=== PATIENT | male | born 1950 | race Caucasian/White ===

== ENCOUNTER 2024-03-21 18:12 | Inpatient (IN) | payer MEDICARE ==
[~2024-03-21] VITALS: Ht 180.3 cm; Wt 116.8 kg
--- NOTE | 2024-03-21 18:23 | NUR ---
PT JUST NOW PLACED IN MY ED BED 9 BY [facility]. SEPSIS ALERT
[2024-03-21] MEDS: acetaMINOPHEN 1,000 MG/100 ML VIAL IVPB SCH (18:49)
[2024-03-21 18:50] LABS: BASOPHILS # (AUTO) 0.02 K/uL (0.00-0.20); BASOPHILS % (AUTO) 0.2 % (0.0-5.0); EOSINOPHILS # (AUTO) 0.14 K/uL (0.00-0.70); EOSINOPHILS % (AUTO) 1.4 % (0.0-8.0); HEMATOCRIT 38.3 % (42-54); IMMATURE GRANULOCYTE ABSOLUTE 0.05 K/uL (0-1); LYMPHOCYTES # (AUTO) 0.6 K/uL (1.0-4.8); LYMPHOCYTES % (AUTO) 5.9 % (21.0-51.0); MEAN CORPUSCULAR HEMOGLOBIN 29.9 pg (27.0-33.0); MEAN CORPUSCULAR HGB CONC 32.9 g/dL (32.0-36.0); MEAN CORPUSCULAR VOLUME 90.8 fL (79-99); MONOCYTES # (AUTO) 0.5 K/uL (0.1-1.0); MONOCYTES % (AUTO) 5.5 % (3.0-13.0); NEUTROPHILS # (AUTO) 8.4 K/uL (1.8-7.7); NEUTROPHILS % (AUTO) 86.5 % (40.0-77.0); PLATELET COUNT (AUTO) 210 K/uL (130-400); RED BLOOD CELL COUNT(AUTO) 4.22 MIL/uL (4.50-6.20); WHITE BLOOD COUNT (AUTO) 9.7 K/uL (4.8-10.8)
[2024-03-21] MEDS: 0.9%NACL 1000ML 1,000 ML IV ONE (18:50)
--- NOTE | 2024-03-21 18:50 | NUR ---
PT JUST RETURNED FROM CT SCAN
--- NOTE | 2024-03-21 18:55 | ERN ---
General Chief Complaint: Altered Mental Status Stated Complaint: AMS Time Seen by MD: 18:16 History of Present Illness Initial Comments 73-year-old male brought in by EMS for weakness, and high fever. According to the patient, [place] and he arrived earlier today. The friends that he met thought that he may have been acting abnormal, they found him down in the high fever. The patient has a GCS of 15 but is slow to respond and forgetful. He denies any complaints at this time. Denies any sore throat cough congestion vomiting diarrhea dysuria. He reports he has been in his normal state of health. He reports he was medical conditions including hypertension, but he can not recall his other medical conditions or medications. Allergies: Coded Allergies: Penicillins (Unverified Allergy, Intermediate, 03/22/24) 30 yrs ago aspirin (Unverified Allergy, Unknown, 03/21/24) Home Meds Reported Medications Magnesium Oxide (Magnesium) 500 Mg Capsule, 500 MG PO HS, CAP 03/22/24 Vitamin E Mixed (Vitamin E) 1,000 Unit Capsule, 1 CAP PO DAILY for 30 Days, #30 CAP 0 Refills 03/22/24 Glucosa Mcbride 2Kcl/Chondroitin Mcbride (Glucosamine & Chondroitin Cap) 500 Mg-400 Mg Capsule, 1 EACH PO DAILY, CAP 03/22/24 Multivits-Min/FA/Lycopene/Lut (Centrum Silver Tablet) 0.4 Mg-300 Mcg-250 Mcg Ta blet, 1 TAB PO DAILY for 30 Days, #30 TAB 0 Refills 03/22/24 Acetaminophen (Tylenol) 325 Mg Tablet, 1-2 TAB PO DAILY PRN for pain or fever for 7 Days, #60 TAB 0 Refills 03/22/24 Laurel-3/Dha/Epa/Fish Oil (Fish Oil 1,200 mg Softgel) 1,200 Mg (144 Mg-216 Mg) Capsule, 1200 MG PO DAILY, CAP 03/22/24 Hydrochlorothiazide (Hydrochlorothiazide) 25 Mg Tablet, 1 TAB PO DAILY for 30 Days, #30 TAB 0 Refills 03/22/24 Valsartan (Valsartan) 160 Mg Tablet, 1 TAB PO DAILY for 30 Days, #30 TAB 0 Refills 03/22/24 Atorvastatin Calcium (LIPITOR) 40 Mg Tablet, 1 TAB PO DAILY for 30 Days, #30 TAB 0 Refills 03/22/24 Fluoxetine HCl (Fluoxetine HCl) 20 Mg Tablet, 1 TAB PO DAILY for 30 Days, #30 TAB 0 Refills 03/22/24 Clopidogrel Bisulfate (Clopidogrel) 75 Mg Tablet, 1 TAB PO HS for 30 Days, #30 TAB 0 Refills 03/22/24 Hydroxyzine HCl (Hydroxyzine HCl) 25 Mg Tablet, 1 TAB PO HS for anxiety for 30 Days, #60 TAB 0 Refills 03/22/24 Gabapentin (Gabapentin) 100 Mg Capsule, 1 CAP PO HS for 30 Days, #90 CAP 0 Refills 03/22/24 Pantoprazole Sodium (Pantoprazole Sodium) 40 Mg Tablet.dr, 1 TAB PO HS for 30 Days, #30 TAB 0 Refills 03/22/24 Metformin HCl (Metformin HCl ER) 500 Mg Tab.er.24h, 1 TAB PO BID for 30 Days, #60 TAB 0 Refills 03/22/24 Discontinued Reported Medications Donepezil HCl (Donepezil HCl) 5 Mg Tab.rapdis, 5 MG PO HS, TAB 03/22/24 Past Medical History Past Medical History: CVA, Hypertension Past Surgical History: None ROS Dictation CONSTITUTIONAL: Fever HEAD/FACE: No signs of trauma. EENT: No eye pain, no blurred vision, no tearing, no double vision, no ear pain, no ear discharge, no nose pain, no nasal congestion, no throat pain, no throat swelling, no mouth pain. RESPIRATORY: No cough, no orthopnea, no SOB, no stridor, no wheezing. CARDIOVASCULAR: No chest pain, no edema, no palpitations, no syncope. GASTROINTESTINAL/ABDOMINAL: No abdominal pain, no constipation, no diarrhea, no nausea, no vomiting. GENITOURINARY: No abnormal discharge, no dysuria, no frequent urination, no hematuria. No complaints of pain in the genitals. MUSCULOSKELETAL: No back pain, no gout, no joint pain, no joint swelling, no muscle pain, no muscle stiffness, no neck pain. INTEGUMENTARY: No change in color, no change in hair/nails, no dryness, no lesion, no lumps, no rash. NEUROLOGICAL/PSYCH: No anxiety, not depressed, no emotional problem, no headache, no numbness, no pre-existing deficit, no history of seizures, no tremors, no weakness. HEMATOLOGIC/LYMPHATIC: Not anemic, no history of blood clots, no apparent bleeding, no bruising, glands not swollen. All Systems Negative, Except as Noted. Physical Exam Physical Exam Dictation VITAL SIGNS: Reviewed. GENERAL APPEARANCE: Alert, oriented x3, no acute distress, obese. HEAD AND FACE: Non-traumatic. EYES: PERRL, pink conjunctivas, eyelid no trauma, anterior chamber clear. EARS: Pinnas intact and no signs of trauma or erythema. Ear canals clear and no discharge. TMs no erythema. NOSE: No discharge, no bleeding. OROPHARYNX: Mouth normal, teeth no caries, tongue pink. Pharynx clear, no erythema. Tonsils no exudates, no abscesses noted. Mucous membrane moist. NECK: Supple, non-tender, no thyromegaly, no masses, no JVD, no bruits. BREAST: Deferred. CHEST: No tenderness, no crepitus, no paradoxical movement, no retractions. LUNGS: Clear, well-ventilated, symmetric, no rales, no wheezing, no rhonchi, no stridor, good breath sounds bilaterally. HEART: Regular rate, regular rhythm, no murmur, no gallops. VASCULAR: No peripheral edema. ABDOMEN: Soft, positive bowel sounds, nondistended, no guarding, nontender, no rebound, no masses no hepatomegaly, no splenomegaly, no Dumont's sign, no hernias. RECTAL: Deferred. GENITAL: Deferred. NEUROLOGICAL: Normal speech, gross motor function intact, gross sensory function intact. MUSCULOSKELETAL: Neck nontender, full range of motion, back nontender, full range of motion. EXTREMITIES: Nontender, full range of motion. SKIN: Color pink, dry, no turgor, no rash, no lacerations, no abrasions, no contusions. LYMPHATICS: Deferred. Results Laboratory and Microbiology Lab and Micro Result Laboratory Tests Test 03/21/24 18:30 03/21/24 18:50 03/21/24 19:13 White Blood Count 9.7 K/uL (4.8-10.8) Red Blood Count 4.22 MIL/uL (4.50-6.20) L Hemoglobin 12.6 g/dL (14.0-18.0) L Hematocrit 38.3 % (42-54) L Mean Corpuscular Volume 90.8 fL (79-99) Mean Corpuscular Hemoglobin 29.9 pg (27.0-33.0) Mean Corpuscular Hemoglobin Concent 32.9 g/dL (32.0-36.0) Red Cell Distribution Width 13.0 % (11.0-15.5) Platelet Count 210 K/uL (130-400) Mean Platelet Volume 8.5 fL (7.5-10.5) Immature Granulocyte % (Auto) 0.5 % (0-1) Neutrophils (%) (Auto) 86.5 % (40.0-77.0) H Lymphocytes (%) (Auto) 5.9 % (21.0-51.0) L Monocytes (%) (Auto) 5.5 % (3.0-13.0) Eosinophils (%) (Auto) 1.4 % (0.0-8.0) Basophils (%) (Auto) 0.2 % (0.0-5.0) Neutrophils # (Auto) 8.4 K/uL (1.8-7.7) H Lymphocytes # (Auto) 0.6 K/uL (1.0-4.8) L Monocytes # (Auto) 0.5 K/uL (0.1-1.0) Eosinophils # (Auto) 0.14 K/uL (0.00-0.70) Basophils # (Auto) 0.02 K/uL (0.00-0.20) Absolute Immature Granulocyte (auto 0.05 K/uL (0-1) Nucleated Red Blood Cells 0.0 % (0.0-0.19) White Cell Morphology Comment See comments Urine Color YELLOW (YELLOW) Urine Appearance CLEAR (CLEAR) Urine pH 6.5 (5.0-8.0) Urine Specific [place] 1.016 (1.001-1.031) Urine Protein NEGATIVE mg/dL (NEGATIVE) Urine Glucose (UA) NEGATIVE mg/dL (NEGATIVE) Urine Ketones NEGATIVE mg/dL (NEGATIVE) Urine Occult Blood NEGATIVE (NEGATIVE) Urine Nitrate NEGATIVE (NEGATIVE) Urine Bilirubin NEGATIVE mg/dL (NEGATIVE) Urine Urobilinogen 0.2 mg/dL (0.2-1.0) Urine Leukocyte Esterase NEGATIVE [place]/uL Sodium Level 143 mmol/L (136-145) Potassium Level 3.1 mmol/L (3.5-5.1) L Chloride Level 102 mmol/L (101-111) Carbon Dioxide Level 32 mmol/L (21-32) Blood Urea Nitrogen 17 mg/dL (7-18) Creatinine 1.1 mg/dL (0.5-1.3) Glomerular Filtration Rate Calc 71 mL/min (>90) Random Glucose 113 mg/dL (70-105) H Lactic Acid Level 3.2 mmol/L (0.8-2.5) H Total Calcium 8.8 mg/dL (8.5-10.1) Total Bilirubin 0.9 mg/dL (0.2-1.0) Direct Bilirubin 0.2 mg/dL (0.0-0.3) Aspartate Amino Transf (AST/SGOT) 42 U/L (10-37) H Alanine Aminotransferase (ALT/SGPT) 66 U/L (12-78) Alkaline Phosphatase 71 U/L (50-136) Total Creatine Kinase 203 U/L (21-232) Troponin I High Sensitivity 10 ng/L (4-75) Total Protein 7.6 g/dL (6.0-8.3) Albumin 3.4 g/dL (3.5-5.0) L Procalcitonin 0.27 ng/mL (0.05-0.5) Influenza Type A Antigen Negative For Type A Influenza Type B Antigen Negative For Type B SARS-CoV-2 Antigen (Rapid) PRESUMPTIVE NEGATIVE Group A Streptococcus Rapid negative (NEGATIVE) Labs Reviewed?: Yes EKG/XRAY/US/CT/MRI EKG Comment 03/21/2024 time 8:23 p.m. Ventricular rate 90 Sinus rhythm [place] [address] wave elevation or depression X-RAY Comment [address] [address] IMAGING REPORT Signed PATIENT: NEHEMIAH STOUT MR#: [id number] : 1950 SEX: M AGE: 73 LOCATION: [facility] ORDER 29 STATUS: REG ER REPORT#: [id number] SERVICE 26 REASON: cough ORDERING PHYSICIAN: WENDY DAVIDSON DO PROCEDURE: CXR1VW - CHEST 1VW CHEST 1VW REASON: cough COMPARISON: None. FINDINGS: Single view of the chest was obtained. Lungs are clear. There is mild cardiomegaly. There is no pulmonary vascular congestion. Mediastinum and bony thorax appear unremarkable. IMPRESSION: 1. Mild cardiomegaly. 2. No acute finding. DICTATED BY: MAUREEN CABRALES MD DATE: 03/21/241941 ELECTRONICALLY SIGNED BY: MAUREEN CABRALES MD DATE: 03/21/241946 CT Scan Comment [place] [id number] [place] [address] IMAGING REPORT Signed PATIENT: NEHEMIAH STOUT MR#: [id number] : 1950 SEX: M AGE: 73 LOCATION: [facility] ORDER 30 STATUS: [facility] ER REPORT#: [id number] SERVICE 29 REASON: altered ORDERING PHYSICIAN: WENDY DAVIDSON DO PROCEDURE: HEAD WO - CT HEAD/BRAIN W/O CONTRAST Exam: NONCONTRAST CT BRAIN REASON: altered . COMPARISON: None. TECHNIQUE: Images are obtained from vertex to the skull base. The exam was performed without IV contrast. FINDINGS: There is a CSF collection in the posterior inferior right hemisacrum consistent with an arachnoid cyst. Encephalomalacia could result in this appearance as well. There is no mass effect. There is no midline shift. There is otherwise normal appearing brain parenchyma. There are no focal mass lesions. There is is no evidence of intracranial hemorrhage or acute stroke. Ventricles and sulci appear normal. Posterior fossa and brainstem structures are unremarkable. Paranasal sinuses and remaining extracranial soft tissues appear normal as well. IMPRESSION: 1. No acute finding 2. Encephalomalacia versus arachnoid cyst in the right hemicerebellum. CT was performed with one or more following dose reduction techniques: automated exposure control, adjustment of the mA and kv according to patient's size, or use of a iterative reconstruction technique. DICTATED BY: MAUREEN CABRALES MD DATE: 03/21/241848 ELECTRONICALLY SIGNED BY: MAUREEN CABRALES MD DATE: 03/21/241852 [facility] MDM: Differential diagnosis: Respiratory distress, seizures, fever, Rationale: Tests considered and ordered secondary to shared decision making include: labs, ECG and radiology Previous outside records reviewed: Old ER visits. Risk of complication and/or morbidity or mortality of patient management: None Medications-Per medication reconciliation Need for hospitalization: Patient does meet criteria for hospitalization. Need for emergency major/minor surgery: No There are no social concerns with this patient. Prescription drug management Prescriptions will include symptomatic care Patient's prior external medical records from other ER visits were reviewed by me as indicated. Prior testing and results from previous visits were reviewed. Prior tests were taken into account with medical decision making and resource utilization, independent historian/historians were used to obtain complete medical history. I independently interpreted the test that were performed, results were reviewed by me and considered findings on radiology if ordered. Medical management and examination interpretation discussions were had by me with other qualified healthcare professionals as indicated for the patient's care. Patient will be admitted under the care of hospitalist group for ongoing management.. The patient meets criteria for sepsis. He received IV fluids and IV antibiotics. On sepsis focused re-evaluation after the fluids antibiotics the patient has a improved vital signs and stable perfusion. ED Course Orders Procedure Category Date Status Time Cbc With Differential LAB 03/21/24 Complete 18:26 Blood Cult TESS 03/21/24 In Process 18:26 Urinalysis Profile LAB 03/21/24 Complete 18:26 Culture Urine ETSS 03/21/24 In Process 18:26 Creatine Kinase, Total LAB 03/21/24 Complete 18:26 Troponin I High LAB 03/21/24 Complete Sensitivity 18:26 Lactic Acid LAB 03/21/24 Complete 18:26 Basic Metabolic Panel LAB 03/21/24 Complete 18:26 Chest 1vw RAD 03/21/24 Resulted 18:27 Covid19 (Sars Antigen LAB 03/21/24 Complete Rapid) 18:27 Influenza Type A & B, LAB 03/21/24 Complete Rapid 18:27 Hepatic Function Panel LAB 03/21/24 Complete 18:27 0.9%Nacl 1000ml (Ns PHA 03/21/24 Complete 1000ml) 18:30 Ct Head/Brain W/O CT 03/21/24 Resulted Contrast 18:30 Acetaminophen PHA 03/21/24 Complete (Acetaminophen) 18:30 Rapid (Group A Strep) LAB 03/21/24 Complete 19:09 Febrile Agglutinins LAB 03/21/24 In Process Panel 19:09 Ipratropium/Albuterol PHA 03/21/24 Complete Neb (Duoneb) 20:00 Methylprednisolone PHA 03/21/24 Complete Succ 125mg (Solu-Medr 20:00 12 Lead Ekg Tracing- EKG 03/21/24 Resulted Technical 20:10 Current Medications Medications (Trade) Dose Ordered Sig/Kim Route PRN Reason Start Time Stop Time Status Last Admin Dose Admin Acetaminophen (acetaMINOPHEN) 1,000 mg ONCE IVPB 03/21/24 18:30 03/22/24 13:18 DC 03/21/24 18:49 Albuterol (DUOneb) 2 udvial ONCE ONCE IH 03/21/24 20:00 03/21/24 20:01 DC 03/21/24 20:59 Methylprednisolone Sodium Succinate (Solu-medROL 125MG) 125 mg ONCE ONCE IVP 03/21/24 20:00 03/21/24 20:01 DC 03/21/24 20:07 Sodium Chloride 1,000 ml @ 0 mls/hr ONCE ONCE IV 03/21/24 18:30 03/21/24 18:31 DC 03/21/24 18:50 Vital Signs Date Time Temp Pulse Resp B/P (MAP) Pulse Ox O2 Delivery O2 Flow Rate FiO2 03/21/24 19:39 90 18 122/78 95 Nasal Cannula* 2 28 03/21/24 19:21 100.9 95 18 140/78 95 Nasal Cannula* 2 28 03/21/24 18:21 103.1 109 25 138/69 96 Nasal Cannula* 4 36 03/21/24 18:21 103.1 109 25 138/69 96 4.0 DX & DISP Disposition: Inpatient Decision to Admit Time: 20:09 Departure Impression: Primary Impression: Respiratory distress Additional Impressions: Syncope, Sepsis Critical Time: 30 minutes (Critical Care Procedure NoteAuthorized and Performed by: meTotal critical care time: Approximately 36 minutesDue to a high probability of clinically significant, life threatening deterioration, the patient required my highest level of preparedness to intervene emergently and I personally spent this critical care time directly and personally managing the patient. This critical care time included obtaining a history; examining the patient; pulse oximetry; ordering and review of studies; arranging urgent treatment with development of a management plan; evaluation of patient's response to treatment; frequent reassessment; and, discussions with other providers.This critical care time was performed to assess and manage the high probability of imminent, life-threatening deterioration that could result in multi-organ failure. It was exclusive of separately billable procedures and treating other patients and teaching time.Please see MDM section and the rest of the note for further information on patient assessment and treatment.) Condition: Stable WENDY DAVIDSON DO Mar 21, 2024 18:55 KJ TITUS MD Mar 21, 2024 20:10
[2024-03-21 19:00] LABS: APPEARANCE,URINE CLEAR (CLEAR); BILIRUBIN,URINE NEGATIVE (NEGATIVE); COLOR,URINE YELLOW (YELLOW); GLUCOSE, URINE (UA) NEGATIVE (NEGATIVE); KETONES,URINE NEGATIVE (NEGATIVE); LEUKOCYTE ESTERASE ,URINE NEGATIVE Leu/uL (NEGATIVE); NITRATE,URINE NEGATIVE (NEGATIVE); OCCULT BLOOD,URINE NEGATIVE (NEGATIVE); PH,URINE 6.5 (5.0-8.0); PROTEIN,URINE NEGATIVE (NEGATIVE); UROBILINOGEN,URINE 0.2 mg/dL (0.2-1.0)
[2024-03-21 19:11] LABS: COVID19 (SARS ANTIGEN RAPID) PRESUMPTIVE NEGATIVE (NEGATIVE)
--- NOTE | 2024-03-21 19:14 | NUR ---
REPORT ENDORSED TO JASMIN EDEN
[2024-03-21 19:15] LABS: ADD UA MICROSCOPIC NO
[2024-03-21 19:17] LABS: CREATININE 1.1 mg/dL (0.5-1.3); POTASSIUM 3.1 mmol/L (3.5-5.1)
[2024-03-21 19:18] LABS: ALBUMIN 3.4 g/dL (3.5-5.0); BILIRUBIN,DIRECT 0.2 mg/dL (0.0-0.3); BILIRUBIN,TOTAL 0.9 mg/dL (0.2-1.0); TOTAL PROTEIN, SERUM 7.6 g/dL (6.0-8.3)
[2024-03-21 19:25] LABS: INFLUENZA TYPE A Negative For Type A (NEGATIVE); INFLUENZA TYPE B Negative For Type B (NEGATIVE)
--- NOTE | 2024-03-21 19:47 | HMCIMG ---
CHEST 1VW REASON: cough COMPARISON: None. FINDINGS: Single view of the chest was obtained. Lungs are clear. There is mild cardiomegaly. There is no pulmonary vascular congestion. Mediastinum and bony thorax appear unremarkable. IMPRESSION: 1. Mild cardiomegaly. 2. No acute finding.
[2024-03-21] MEDS: Solu-medROL 125MG VIAL IVP ONE (20:07)
--- NOTE | 2024-03-21 20:47 | HP ---
History of Present Illness Reason for Visit: [facility] History of Present Illness Mr. Dwyer is a 73-year-old male that was seen and examined today on 03/21/2024. Patient is a good historian and personal health. Patient states he came to the emergency department with a chief complaint of altered mental status. Onset was today at 4:00 p.m.. Location is to head. Duration is on and off. Character is described as" like I am out of it. " there was no alleviating factors. Symptoms are aggravated with the driving straight from [place] to the [facility] yesterday. Patient denies any associated shortness of breath or chest pain. Today in the emergency department potassium 3.1, patient arrived with a temperature of 103.1, heart rate 109, respirations 25, lactic acid 3.2 meeting clinical sepsis criteria. Urinalysis was unremarkable. Flu is negative. Strep screen is negative. COVID screen is negative. Emergency room physician recommended patient be admitted with a diagnosis of sepsis. Past Medical History ADDITIONAL PAST MEDICAL HISTORY: [JOSE, hypertension, CVA with residual left- sided weakness and numbness] SOCIAL HISTORY: [Negative for smoking. Patient drinks alcohol once a week usually a rum and Coke. Patient denies drug use.] SURGICAL HISTORY: [Left knee surgery, right shoulder surgery] Review of Systems General: Fever; No Chills, No Night Sweats, No Fatigue; Malaise; No Appetite, No Other HEENT: No Head Aches, No Visual Changes, No Eye Pain, No Ear Pain, No Dysphasia, No Sinus Congestion, No Post Nasal Drip, No Sore Throat, No Other Pulmonary: No Dyspnea, No Cough, No Pleuritic Chest Pain, No Other Cardiovascular: No: Chest Pain, Palpitations, Orthopnea, Paroxysmal Noc. Dyspnea, Edema, Lt Headedness, Other Gastrointestinal: No: Nausea, Vomiting, Abdominal Pain, Diarrhea, Constipation, Melena, Hematochezia, Other Genitourinary: No Dysuria, No Frequency, No Incontinence, No Hematuria, No Retention, No Other Musculoskeletal: No: other, neck pain, shoulder pain, arm pain, back pain, hand pain, leg pain, foot pain Skin: No Urticaria, No Rash, No Other Neurological: Weakness; No: Numbness, Incoordination, Change in speech, Confusion, Seizures, Other Allergies: Coded Allergies: aspirin (Unverified Allergy, Unknown, 03/21/24) Exam Vital Signs Vital Signs Date Time Temp Pulse Resp B/P (MAP) Pulse Ox O2 Delivery O2 Flow Rate FiO2 03/21/24 19:39 90 18 122/78 95 Nasal Cannula* 2 28 03/21/24 19:21 100.9 General Appearance: Alert, Oriented X3, Cooperative, mild distress HEENT: Atraumatic, EOMI Respiratory: Clear to auscultation, Normal air movement, NL respiratory effort Cardiovascular: Regular rate, Regular rhythm, Normal S1, Normal S2 Abdominal: Normal bowel sounds, No tenderness Extremities: No edema Skin: No significant lesion Neuro: Normal speech, Strength at 5/5 X4 ext, Sensation intact, Cranial nerves 3-12 NL Psych/Mental Status: Mental status NL, Mood NL, Thoughts/Content NL Assessment/Plan ASSESSMENT: [ Sepsis, POA Hypokalemia, POA Hyperlactatemia, POA JOSE Hypertension History of CVA with left-sided weakness] PLAN: [ Admit patient to medical floor as inpatient status. Place patient on telemetry monitoring. Fluid resuscitation with lactated Ringer's 30 mL/kg. Empiric antibiotic therapy with Zosyn. Check procalcitonin, follow up with the results Check blood culture, follow up with the results. Repeat lactic acid in a.m. Replace potassium per hospital protocol CPAP per home settings Consider resuming home medications once they are reconciled For now, Hydralazine 10 mg IV every 4 hours for systolic blood pressure greater than 160 mmHg DuoNebs every 6 hours Pulmicort twice daily GI prophylaxis, famotidine 20 mg by mouth once daily. DVT prophylaxis, Lovenox 40 mg subcutaneously once daily. ADVANCED CARE PLANNING 1. Which of the following were discussed? Hospice Care - Yes Therapeutic options - Yes Advance Directives - Yes- patient states that he does not have any advance directives in place at this time, however his Katie Dwyer can make decisions for him if he becomes unable. Other discussions - patient wishes to remain a full code at this time 2. Discussed with who? Patient 3. Voluntary nature of this service was explained to the patient? Yes 4. Amount of time spent - _ 16 minutes 5. Reviewed by Physician? (if this service was performed by NPP) Yes This document was generated in part using voice recognition software, occasional wrong word or sound alike substitutions may have occurred due to the inherent limitations of voice recognition software. Read the chart carefully and recognize using context, where the substitutions have occurred. Although every effort was made to edit the content, junior account manager and typing errors may occur ATTESTATION BY PHYSICIAN I have seen and examined the patient. I reviewed the documentation, medical decision making, and treatment plan as noted by the mid-level provider above. I agree with the findings and plan of care. VAIBHAV [facility] Mar 21, 2024 20:47
[2024-03-21 20:59] VITALS: PULSE 86; RESP 20
[2024-03-21] MEDS: IpraTROPium/alBUTERol SULFATE 3 ML SOLUTION IH ONE (20:59)
[2024-03-21] MEDS ORDERED: ondanSETRON 4MG INJ IV PRN (21:00)
[2024-03-21] MEDS ORDERED: PoTASSium chl 10% ELIXIR 20MEQ 20 MEQ/15 ML UDCUP PO PRN (21:00)
[2024-03-21] MEDS ORDERED: PoTASSium chloRIDE 20MEQ/100ML 100 ML IV PRN (21:00)
[2024-03-21] MEDS ORDERED: morPHINE 2 MG SYG IVP PRN (21:00)
--- NOTE | 2024-03-21 21:04 | EKG ---
[facility] Test Date: 2024-03-21 Test Time: 20:23:29 Pat Name: STEPH STOUT Department: [facility] Room: 411 Gender: M [employer] Writer: [id number] : 1950 Requested By: KJ TITUS Order Number: [id number] Reading MD: Doron Diamond Measurements Intervals [place] Rate: 90 P: 45 [place]: 220 QRS: -9 QRSD: 80 T: 19 QT: 370 QTc: 453 Interpretive Statements Sinus rhythm Prolonged [place] interval No previous ECG available for comparison Electronically Signed On 03-22-2024 12:17:54 [employer] RECEPTION[employer] by Doron Diamond Please click the below link to view image of tracing.
--- NOTE | 2024-03-21 22:22 | NUR ---
VAIBHAV JIM AT BEDSIDE.
[2024-03-21] MEDS: ZOSYN 3.375GM +NS 50ML IV SCH (22:29)
[2024-03-21] MEDS: LACTATED RINGERS IV ONE (22:29)
[2024-03-21 23:30] VITALS: PULSE 76; RESP 18; O2SAT 98
[2024-03-21] MEDS: IpraTROPium/alBUTERol SULFATE 3 ML SOLUTION IH SCH (23:30)
[2024-03-21 23:49] VITALS: PULSE 86; RESP 19; O2SAT 98
[2024-03-22] VITALS (16 sets, daily range): BP systolic 126–143; BP diastolic 59–70; PULSE 63–84; RESP 17–21; TEMP 97.8–98.3; O2SAT 92–96
--- NOTE | 2024-03-22 00:50 | NUR ---
PATIENT ON HOME CPAP.
[2024-03-22] MEDS ORDERED: HYDR-3421 PO (03:38)
[2024-03-22] MEDS ORDERED: METF-910 PO (03:38)
[2024-03-22] MEDS ORDERED: VALS160T29 PO (03:38)
[2024-03-22] MEDS ORDERED: FLUO20TA29 PO (03:38)
[2024-03-22] MEDS ORDERED: CLOP75TA32 PO (03:38)
[2024-03-22] MEDS ORDERED: GABA-529 PO (03:38)
[2024-03-22] MEDS ORDERED: PANT40TA54 PO (03:38)
[2024-03-22] MEDS ORDERED: ATOR40TA69 PO (03:38)
[2024-03-22] MEDS ORDERED: DONE-51 PO (03:38)
[2024-03-22] MEDS ORDERED: HYDR25TA PO (03:38)
[2024-03-22] MEDS ORDERED: VITA100059 PO (03:41)
[2024-03-22] MEDS ORDERED: OMEG12002 PO (03:41)
[2024-03-22] MEDS ORDERED: GLUC-29 PO (03:41)
[2024-03-22] MEDS ORDERED: ACET-2247 PO (03:41)
[2024-03-22] MEDS ORDERED: MULT-1258 PO (03:41)
[2024-03-22] MEDS ORDERED: MAGN500C4 PO (03:42)
[2024-03-22] MEDS: PoTASSium chloRIDE 20MEQ ER 20 MEQ ERTAB PO PRN (03:57)
--- NOTE | 2024-03-22 04:32 | NUR ---
arrival report given from elio guerra. patient arrived at 0315 to room 411. He is alert and oriented times 4. plan of care discussed with him and he verbalized understanding. home medications entered. patient is ambulatory to the restroom. He claims he was told he had a penicillin allergy 30 years ago for swelling. I spoke with Hunter,pharmacist, and he said that the zosyn was fine and to monitor for now. patient put on his cpap with 2 liters of oxygen extra. call light within reach, bed alarm on, 2 side rails up. will continue to monitor patient.
--- NOTE | 2024-03-22 06:39 | NUR ---
critical lactic acid is 4.9. paged hospitalist. pending call back.
--- NOTE | 2024-03-22 06:52 | NUR ---
lactic acid re-paged hospitalist for lactic acid 4.9. pending call back.
[2024-03-22 06:54] LABS: MAGNESIUM 1.5 mg/dL (1.80-2.40); PHOSPHORUS 3.7 mg/dL (2.5-4.9); POTASSIUM 4.2 mmol/L (3.5-5.1)
--- NOTE | 2024-03-22 07:21 | NUR ---
lactic acid cookie callahan aware. she will review patient's chart before ordering.
[2024-03-22] MEDS: BUDESONIDE 0.5 MG/2 ML INH IH SCH (07:22)
[2024-03-22 08:07] LABS: BASOPHILS # (AUTO) 0.05 K/uL (0.00-0.20); BASOPHILS % (AUTO) 0.2 % (0.0-5.0); EOSINOPHILS # (AUTO) 0.17 K/uL (0.00-0.70); EOSINOPHILS % (AUTO) 0.8 % (0.0-8.0); HEMATOCRIT 37.9 % (42-54); IMMATURE GRANULOCYTE ABSOLUTE 0.41 K/uL (0-1); LYMPHOCYTES # (AUTO) 1.1 K/uL (1.0-4.8); LYMPHOCYTES % (AUTO) 5.1 % (21.0-51.0); MEAN CORPUSCULAR HEMOGLOBIN 29.6 pg (27.0-33.0); MEAN CORPUSCULAR HGB CONC 31.7 g/dL (32.0-36.0); MEAN CORPUSCULAR VOLUME 93.6 fL (79-99); MONOCYTES # (AUTO) 1.1 K/uL (0.1-1.0); MONOCYTES % (AUTO) 5.1 % (3.0-13.0); NEUTROPHILS # (AUTO) 18.7 K/uL (1.8-7.7); NEUTROPHILS % (AUTO) 86.9 % (40.0-77.0); PLATELET COUNT (AUTO) 206 K/uL (130-400); RED BLOOD CELL COUNT(AUTO) 4.05 MIL/uL (4.50-6.20); RED CELL DISTRIBUTION WIDTH 13.1 % (11.0-15.5); WHITE BLOOD COUNT (AUTO) 21.5 K/uL (4.8-10.8)
[2024-03-22] MEDS: MAGNESIUM 2GM PREMIX 50ML 50 ML IV PRN (08:49)
[2024-03-22] MEDS: FAMOTIDINE 20MG TAB PO SCH (08:49)
[2024-03-22] MEDS: ENOXAPARIN SODIUM 40 MG/0.4 ML SYRINGE SQ SCH (08:49)
[2024-03-22] MEDS: LACTATED RINGERS 1000ML 1,000 ML IV SCH (10:52)
[2024-03-22 11:27] LABS: HEMOGLOBIN A1C 6.1 % (4.0-6.0)
[2024-03-22] MEDS ORDERED: VANCOMYCIN PROTOCOL PER PHARMACY IV SCH (12:00)
[2024-03-22] MEDS ORDERED: acetaMINOPHEN 325 MG TAB PO PRN (12:00)
--- NOTE | 2024-03-22 12:38 | HMCIMG ---
CT CHEST/ABD/PELV W/O CONTRAST CLINICAL HISTORY: fever COMPARISON: None TECHNIQUE: Sequential axial images of chest abdomen and pelvis without contrast and with sagittal and coronal reconstructions. CT was performed with one or more of the following dose reduction techniques: automated exposure control, adjustment of the mA and/or kV according to patient size, or use of iterative reconstruction technique FINDINGS: There is a small area of groundglass opacification and areas of atelectasis or small soft tissue mass demonstrated in the inferior aspect of the right hilum. There is also mild atelectasis in the right lower lobe. Mediastinum is free of pathologic size lymph nodes. Note is made of advanced calcified left anterior coronary artery disease. There is diffuse fatty infiltration liver. The spleen is unremarkable. There is large gallbladder calculus but no acute inflammatory changes. The pancreas and adrenal glands are unremarkable. The kidneys and bladder are within normal limits. There is no identified bowel obstruction. There is no bulky abdominal or retroperitoneal lymphadenopathy. The appendix is normal. The prostate gland is within normal limits. The bony structures demonstrate mild diffuse degenerative change of the spine. IMPRESSION: Small area of infiltrate or mass demonstrated in the right lower lobe inferior to the right hilum. Cholelithiasis. Fatty liver.
--- NOTE | 2024-03-22 12:46 | PN ---
[facility] PROGRESS NOTE Date of Service: Mar 22, 2024 Time of Service: 12:40 SUBJECTIVE: [ 73-year-old male who came into the emergency department with fever, T-max 103. We are treating the patient with sepsis, unknown source at this time, we requested CT pelvis abdomen and chest. Patient will continue with IV antibiotics currently on Zosyn we will add vancomycin. Infectious Disease consulted. We will continue to follow.] REVIEW OF SYSTEMS CONSTITUTIONAL: Denies fevers, chills, or night sweats. No unintentional weight loss reported. NEUROLOGICAL: Denies headache, amaurosis fugax, motor weakness, sensory deficit, vertigo/spinning sensation, gait abnormalities, or tremors. ENT: No hearing loss, otalgia, otorrhea, rhinitis, rhinorrhea, hoarseness, or sore throat. CARDIOVASCULAR: Denies any exertional angina, dyspnea on exertion, orthopnea, paroxysmal nocturnal dyspnea, palpitations, life-threatening arrhythmias, claudication. PULMONARY: Denies any shortness of breath, cough, phlegm/sputum, hemoptysis, pleuritic chest pain. SLEEP: Denies morning headaches, daytime somnolence or napping. Denies difficulty falling asleep, staying asleep, waking from sleep. Denies knowledge of snoring. GASTROINTESTINAL: Denies any type of dysphagia to either liquids or solids. Denies nausea, vomiting, pyrosis, early satiety, abdominal pain, diarrhea, constipation, or changes in stool consistency or caliber. Denies coffee-ground emesis, hematemesis, hematochezia, or melanotic stools. GENITOURINARY: Denies frequency, urgency, nocturia, hematuria or incontinence (Storage/Irritative symptoms.) Low urinary stream, straining to void, urinary intermittency or hesitancy, splitting of the voiding stream, terminal dribbling. ENDOCRINOLOGIC: Denies polyuria, polydipsia, polyphagia or heat/cold intolerances. HEMATOLOGIC: Denies thrombophilia/previous clots, or coagulopathy/bleeding disorders. ONCOLOGIC: Denies personal history of malignancy. DERMATOLOGIC: Denies rashes or pruritus. PSYCHIATRIC: Denies any suicidal or homicidal ideation. Denies hallucinations. PHYSICAL EXAM GENERAL APPEARANCE: The patient is awake, alert, and oriented, in no acute cardiopulmonary distress. NEUROLOGICAL: Cranial nerves II-XII grossly intact. Motor is 5/5 in bilateral upper and lower extremities proximal to distal. No sensory deficits. HEENT: Face is symmetric. Pupils are equal and reactive. Extraocular movements are intact. NECK: Supple. No JVD. No thyromegaly. No submental, submandibular, pre- /postauricular, occipital or supraclavicular lymphadenopathy. CHEST: Normal chest expansion. No Telemetry. LUNGS: Absence of any rales, rhonchi or any wheezing. CARDIOVASCULAR: Regular. S1 and S2 normal. No appreciable rubs, murmurs or gallops. ABDOMEN: Soft, nontender, and nondistended. There is no rebound, voluntary guarding, or rigidity. : Deferred. No White. EXTREMITIES: Non-edematous and not cyanotic. No clubbing. Good capillary refill. SKIN: No skin breakdown. Vital Signs (last 8hr) Date Time Temp Pulse Resp B/P (MAP) Pulse Ox O2 Delivery O2 Flow Rate FiO2 03/22/24 12:00 98.2 68 18 128/62 94 Room Air 03/22/24 11:27 74 18 03/22/24 11:26 74 18 N/A Room Air 21 03/22/24 08:10 95 Room Air* 0 21 03/22/24 08:00 98.1 65 18 126/59 95 Nasal Cannula 3.0 03/22/24 07:22 74 18 03/22/24 07:20 64 18 N/Cannula Low lpm 2.0 28 LABS: Laboratory: Test 03/22/24 09:59 03/22/24 07:35 03/22/24 06:14 03/21/24 19:13 Range/Units Lactic Acid Level 4.6 H 0.8-2.5 mmol/L White Blood Count 21.5 #H 4.8-10.8 K/uL Red Blood Count 4.05 L 4.50-6.20 MIL/uL Hemoglobin 12.0 L 14.0-18.0 g/dL Hematocrit 37.9 L 42-54 % Mean Corpuscular Volume 93.6 79-99 fL Mean Corpuscular Hemoglobin 29.6 27.0-33.0 pg Mean Corpuscular Hemoglobin Concent 31.7 L 32.0-36.0 g/dL Red Cell Distribution Width 13.1 11.0-15.5 % Platelet Count 206 130-400 K/uL Mean Platelet Volume 8.8 7.5-10.5 fL Immature Granulocyte % (Auto) 1.9 H 0-1 % Neutrophils (%) (Auto) 86.9 H 40.0-77.0 % Lymphocytes (%) (Auto) 5.1 L 21.0-51.0 % Monocytes (%) (Auto) 5.1 3.0-13.0 % Eosinophils (%) (Auto) 0.8 0.0-8.0 % Basophils (%) (Auto) 0.2 0.0-5.0 % Neutrophils # (Auto) 18.7 H 1.8-7.7 K/uL Lymphocytes # (Auto) 1.1 1.0-4.8 K/uL Monocytes # (Auto) 1.1 H 0.1-1.0 K/uL Eosinophils # (Auto) 0.17 0.00-0.70 K/uL Basophils # (Auto) 0.05 0.00-0.20 K/uL Absolute Immature Granulocyte (auto 0.41 0-1 K/uL Nucleated Red Blood Cells 0.0 0.0-0.19 % Hemoglobin A1c 6.1 H 4.0-6.0 % Estimated Average Glucose (eAG) 128 H 70-126 mg/dL Sodium Level 139 136-145 mmol/L Potassium Level 4.2 3.5-5.1 mmol/L Chloride Level 103 101-111 mmol/L Carbon Dioxide Level 24 21-32 mmol/L Blood Urea Nitrogen 15 7-18 mg/dL Creatinine 1.0 0.5-1.3 mg/dL Glomerular Filtration Rate Calc 79 >90 mL/min Random Glucose 178 #H 70-105 mg/dL Total Calcium 8.5 8.5-10.1 mg/dL Phosphorus Level 3.7 2.5-4.9 mg/dL Magnesium Level 1.50 L 1.80-2.40 mg/dL Group A Streptococcus Rapid negative NEGATIVE Test 03/21/24 18:50 03/21/24 18:30 Range/Units Influenza Type A Antigen Negative For Type A NEGATIVE Influenza Type B Antigen Negative For Type B NEGATIVE SARS-CoV-2 Antigen (Rapid) PRESUMPTIVE NEGATIVE NEGATIVE White Cell Morphology Comment See comments Urine Color YELLOW YELLOW Urine Appearance CLEAR CLEAR Urine pH 6.5 5.0-8.0 Urine Specific [place] 1.016 1.001-1.031 Urine Protein NEGATIVE NEGATIVE mg/dL Urine Glucose (UA) NEGATIVE NEGATIVE mg/dL Urine Ketones NEGATIVE NEGATIVE mg/dL Urine Occult Blood NEGATIVE NEGATIVE Urine Nitrate NEGATIVE NEGATIVE Urine Bilirubin NEGATIVE NEGATIVE mg/dL Urine Urobilinogen 0.2 0.2-1.0 mg/dL Urine Leukocyte Esterase NEGATIVE NEGATIVE [place]/uL Total Bilirubin 0.9 0.2-1.0 mg/dL Direct Bilirubin 0.2 0.0-0.3 mg/dL Aspartate Amino Transf (AST/SGOT) 42 H 10-37 U/L Alanine Aminotransferase (ALT/SGPT) 66 12-78 U/L Alkaline Phosphatase 71 50-136 U/L Total Creatine Kinase 203 21-232 U/L Troponin I High Sensitivity 10 4-75 ng/L Total Protein 7.6 6.0-8.3 g/dL Albumin 3.4 L 3.5-5.0 g/dL Procalcitonin 0.27 0.05-0.5 ng/mL Current Medications Medications (Trade) Dose Ordered Sig/Kim Route PRN Reason Start Time Stop Time Status Last Admin Dose Admin Acetaminophen (TYLenol 325MG TAB) 325 mg DAILY PRN PO pain or fever 03/22/24 12:00 04/21/24 11:59 Acetaminophen (acetaMINOPHEN) 1,000 mg ONCE IVPB 03/21/24 18:30 04/20/24 18:29 03/21/24 18:49 1,000 MG Albuterol (DUOneb) 1 UDVIAL [id number] IH 03/22/24 00:00 04/21/24 00:00 03/22/24 11:25 1 UDVIAL Atorvastatin Calcium (LIPItor 40MG) 40 mg DAILY PO 03/23/24 09:00 04/22/24 08:59 Budesonide (Pulmicort 0.5 Mg/2ml) 0.5 mg BIDRESP IH 03/22/24 06:00 04/21/24 05:59 03/22/24 07:22 0.5 MG Clopidogrel Bisulfate (plaVIX 75MG) 75 mg HS PO 03/22/24 21:00 04/21/24 20:59 Enoxaparin Sodium (Lovenox) 40 mg DAILY SQ 03/22/24 09:00 04/21/24 08:59 03/22/24 08:49 40 MG Famotidine (Pepcid 20mg Tab) 20 mg DAILY PO 03/22/24 09:00 04/21/24 08:59 03/22/24 08:49 20 MG Fluoxetine HCl (FLUoxetine HCL 20 MG CAPSULE) 20 mg DAILY PO 03/23/24 09:00 04/22/24 08:59 Gabapentin (NEURontin 100 mg CAP) 100 mg HS PO 03/22/24 21:00 04/21/24 20:59 Home Med (Home Medication) (Glucosamine ... DAILY PO 03/23/24 09:00 04/22/24 08:59 Home Med (Home Medication) (Magnesium Ox... HS PO 03/22/24 21:00 04/21/24 20:59 Home Med (Home Medication) (Multivits-Min/ FA/ Lycope... DAILY PO 03/23/24 09:00 04/22/24 08:59 Home Med (Home Medication) (Schoenchen-3/ Dha/Epa/ Fish ... DAILY PO 03/23/24 09:00 04/22/24 08:59 Home Med (Home Medication) (Vitamin E Mixed (Swetha... DAILY PO 03/23/24 09:00 04/22/24 08:59 Hydralazine HCl (APRESOLine 20MG INJ) 10 mg Q6H PRN IV For:SBP above 160;DBP above 90 03/21/24 21:00 04/20/24 20:59 Hydrochlorothiazide (hydroCHLOROthiazide 25MG) 25 mg DAILY PO 03/23/24 09:00 04/22/24 08:59 Hydroxyzine HCl (ATArax 25MG TAB) 25 mg HS PO 03/22/24 21:00 04/21/24 20:59 Lactated Ringer's 1,000 ml @ 75 mls/hr [id number] IV 03/22/24 11:00 04/21/24 10:59 03/22/24 10:52 75 MLS/HR Losartan Potassium (CozAAR 100MG TAB) 100 mg DAILY PO 03/23/24 09:00 04/22/24 08:59 Magnesium Sulfate 50 ml @ 0 mls/hr PROTOCOL PRN IV h 03/21/24 21:00 04/20/24 20:59 03/22/24 08:49 25 MLS/HR Morphine Sulfate (morPHINE 2MG SYG) 2 mg Q4H PRN IVP SEVERE PAIN (7-10) 03/21/24 21:00 03/28/24 20:59 Ondansetron HCl (zoFRAN 4MG INJ) 4 mg Q6H PRN IV NAUSEA/VOMITING 03/21/24 21:00 04/20/24 20:59 Pantoprazole Sodium (PROTonix 40MG TAB) 40 mg HS PO 03/22/24 21:00 04/21/24 20:59 Piperacillin Sod/ Tazobactam Sod (Zosyn 3.375gm+NS 50ml) 3.375 gm Q8H IV 03/21/24 21:00 03/31/24 20:59 03/22/24 03:48 3.375 GM Potassium Chloride 100 ml @ 100 mls/hr AD PRN IV POTASSIUM PROTOCOL 03/21/24 21:00 04/20/24 20:59 Potassium Chloride (K-Dur/Klor-Con 20meq) 20 meq AD PRN PO POTASSIUM PROTOCOL 03/21/24 21:00 04/20/24 20:59 03/22/24 03:57 20 MEQ Potassium Chloride (KCl 10% Elixir 20meq/15ml) 20 meq AD PRN PO POTASSIUM PROTOCOL 03/21/24 21:00 04/20/24 20:59 Vancomycin HCl 250 ml @ 167 mls/hr Q12H IV 03/22/24 13:00 04/01/24 12:59 Vancomycin HCl (Vancomycin Protocol) 1 each AD IV 03/22/24 12:00 04/05/24 11:59 DIAGNOSTICS / RADIOLOGY: [ ] ASSESSMENT: [Sepsis, POA Fever unknown source, POA Hypokalemia, POA Leukocytosis, up trending, POA Anemia, POA Hyperglycemia with diabetes mellitus type 2, POA Hypomagnesemia, POA PLAN: [Continued patient with telemetry Continue with IV fluids Continue with IV antibiotics Continue to monitor electrolytes and replete as necessary We will continue to monitor blood sugar with a.c. and HS glucometer and insulin sliding scale We will be consulting Infectious Disease for antibiotic stewardship We will follow up with blood culture We will request Rickettsia/typhus We will order CT abdomen pelvis and chest GI and DVT prophylaxis Repeat labs tomorrow Case discussed with Dr. Billy, above plan was formulated ] ATTESTATION BY PHYSICIAN I have seen and examined the patient. I reviewed the documentation, medical decision making, and treatment plan as noted by the mid-level provider above. I agree with the findings and plan of care. HARI BILLY MD, JANICE B [facility] Mar 22, 2024 12:46
[2024-03-22] MEDS ORDERED: VANCOMYCIN 1.5 GM/250 ML BAG 250 ML IV SCH (13:00)
[2024-03-22] MEDS: levoFLOXacin 750 MG/D5W 150ML BAG IV SCH (13:36)
[2024-03-22] MEDS: metRONIDazole 500MG/100ML BAG IV SCH (13:36)
[2024-03-22] MEDS: acetaMINOPHEN 1,000 MG/100 ML VIAL IVPB ONE (13:36)
[2024-03-22] MEDS ORDERED: COMPOUND IV MISC 1 EACH IVSOLN MISC PRN (14:00)
--- NOTE | 2024-03-22 14:18 | NUR ---
DC PLAN VISITED WITH PATIENT. LIVES WITH SPOUSE. INDEPENDENT ABLE TO PERFORM ADL'S. PATIENT HAS NO SERVICES. CPAP ONLY DME. FEELS SAFE TO RETURN HOME. Addendum: 03/22/24 at 1430 by NANY ARRINGTON RN CM Amended: Links added.
--- NOTE | 2024-03-22 14:32 | NUR ---
1216 Janet Cunha [employer] paged, informed of consult. States she is out on vacation and Dr. Hernandez will be back tomorrow. Raquel Mcpherson [employer] aware. [address] [facility] [employer] answering service paged, informed of consult. Pending call back.
--- NOTE | 2024-03-22 18:57 | CONS ---
[facility] CONSULTATION NOTE Date Patient Seen: Mar 22, 2024 Time of Visit: 18:45 Supervising Physician: Dr. John Rm Reason for Consultation: Pneumonia vs lung mass PROBLEM LIST: Pneumonia versus right lung mass per CT scan on 03/22/2023 Sepsis, POA Fever unknown source, POA Hypokalemia, POA Leukocytosis, up trending, POA Anemia, POA Hyperglycemia with diabetes mellitus type 2, POA Hypomagnesemia, POA HPI: Patient is a 73-year-old male is admitted to the hospital for altered mental status after driving to the [facility] from [place]. Upon admission he was found to be febrile, CT scan shows pneumonia versus possible pulmonary mass in the right hilar region. After reviewing the imaging studies patient appears to have an enlarged station seven mediastinal lymph node at 2.2 cm with possible right hilar mass versus infiltrate. We will pursue a CT scan with IV contrast to better characterize the mass versus infiltrate, further recommendations depending upon results of the study. Plan Pursue CT with IV contrast for evaluation of pulmonary mass, further recommen dations to come PAST MEDICAL HX: see above PAST SURGICAL HX: noncontributory SOCIAL HISTORY: No tobacco, ETOH, or illicit drug use Coded Allergies: Penicillins (Unverified Allergy, Intermediate, 03/22/24) 30 yrs ago aspirin (Unverified Allergy, Unknown, 03/21/24) REVIEW OF SYSTEMS: 12 point ROS reviewed with patient. Pertinent positives mentioned above. Otherwise negative. PHYSICAL EXAM: GENERAL: alert, weak, awake oriented x 3 HEENT: EOMI, Sclera non icteric, moist mucosa NECK: Supple, no JVD, trachea midline LUNGS: Clear breath sounds bilaterally. No wheezes HEART: Regular rate and rhythm. Normal S1 and S2, without murmurs ABD: Abdomen soft, nontender. Bowel sounds present EXT: No clubbing cyanosis or edema NEURO: Alert and oriented to person, follows commands Vital Signs (last 8hr) Date Time Temp Pulse Resp B/P (MAP) Pulse Ox O2 Delivery O2 Flow Rate FiO2 03/22/24 16:00 97.9 63 18 134/60 94 Room Air 03/22/24 12:00 98.2 68 18 128/62 94 Room Air 03/22/24 11:27 74 18 03/22/24 11:26 74 18 N/A Room Air 21 LABS: Hematology Labs: Test 03/22/24 07:35 03/21/24 18:30 Range/Units White Blood Count 21.5 #H 4.8-10.8 K/uL Red Blood Count 4.05 L 4.50-6.20 MIL/uL Hemoglobin 12.0 L 14.0-18.0 g/dL Hematocrit 37.9 L 42-54 % Mean Corpuscular Volume 93.6 79-99 fL Mean Corpuscular Hemoglobin 29.6 27.0-33.0 pg Mean Corpuscular Hemoglobin Concent 31.7 L 32.0-36.0 g/dL Red Cell Distribution Width 13.1 11.0-15.5 % Platelet Count 206 130-400 K/uL Mean Platelet Volume 8.8 7.5-10.5 fL Immature Granulocyte % (Auto) 1.9 H 0-1 % Neutrophils (%) (Auto) 86.9 H 40.0-77.0 % Lymphocytes (%) (Auto) 5.1 L 21.0-51.0 % Monocytes (%) (Auto) 5.1 3.0-13.0 % Eosinophils (%) (Auto) 0.8 0.0-8.0 % Basophils (%) (Auto) 0.2 0.0-5.0 % Neutrophils # (Auto) 18.7 H 1.8-7.7 K/uL Lymphocytes # (Auto) 1.1 1.0-4.8 K/uL Monocytes # (Auto) 1.1 H 0.1-1.0 K/uL Eosinophils # (Auto) 0.17 0.00-0.70 K/uL Basophils # (Auto) 0.05 0.00-0.20 K/uL Absolute Immature Granulocyte (auto 0.41 0-1 K/uL Nucleated Red Blood Cells 0.0 0.0-0.19 % White Cell Morphology Comment See comments Chemistry Labs: Test 03/22/24 09:59 03/22/24 07:35 03/22/24 06:14 03/21/24 18:30 Range/Units Lactic Acid Level 4.6 H 0.8-2.5 mmol/L Hemoglobin A1c 6.1 H 4.0-6.0 % Estimated Average Glucose (eAG) 128 H 70-126 mg/dL Sodium Level 139 136-145 mmol/L Potassium Level 4.2 3.5-5.1 mmol/L Chloride Level 103 101-111 mmol/L Carbon Dioxide Level 24 21-32 mmol/L Blood Urea Nitrogen 15 7-18 mg/dL Creatinine 1.0 0.5-1.3 mg/dL Glomerular Filtration Rate Calc 79 >90 mL/min Random Glucose 178 #H 70-105 mg/dL Total Calcium 8.5 8.5-10.1 mg/dL Phosphorus Level 3.7 2.5-4.9 mg/dL Magnesium Level 1.50 L 1.80-2.40 mg/dL Total Bilirubin 0.9 0.2-1.0 mg/dL Direct Bilirubin 0.2 0.0-0.3 mg/dL Aspartate Amino Transf (AST/SGOT) 42 H 10-37 U/L Alanine Aminotransferase (ALT/SGPT) 66 12-78 U/L Alkaline Phosphatase 71 50-136 U/L Total Creatine Kinase 203 21-232 U/L Troponin I High Sensitivity 10 4-75 ng/L Total Protein 7.6 6.0-8.3 g/dL Albumin 3.4 L 3.5-5.0 g/dL Procalcitonin 0.27 0.05-0.5 ng/mL DIAGNOSTICS / RADIOLOGY RESULTS: [ ] PLAN NEURO: Minimize central acting medications as possible. Maintain fall precautions, adequate lighting during the day PULMONARY: Supplemental 02 as needed. Maintain aspiration precautions at all times CARDIOVASCULAR: Follow hemodynamics. Vital signs per facility protocol GI & NUTRITION: Continue with nutritional support. Continue stool softeners and laxatives as needed. KIDNEYS & ELECTROLYTES: Strict monitoring of intake, output and overall fluid balance. Avoid nephrotoxic medications to the extent possible. Medications to be dosed according to renal function. Monitor electrolytes and replace as needed ENDOCRINE: Maintain blood glucose between 100-180 at all times. Hypoglycemia protocol in place INFECTIOUS DISEASE: Trend temperature, WBC and procalcitonin level Follow cultures, deescalate antibiotics as soon as possible. Panculture if new onset fever ONCOLOGY/HEMATOLOGY/COAGULATION: Monitor for s/s of bleeding Monitor hemoglobin, coagulation studies as needed SKIN: Pressure ulcer prevention per facility protocol Specialty mattress ORTHO/REHAB: Continue PT/OT Prophylaxis: Continue GI and DVT prophylaxis Code Status: Full Resuscitation Disposition: TBD Other: Total patient care time exceeds 35 minutes excluding all procedures. CLOVER JANE Mar 22, 2024 18:57
[2024-03-22] MEDS: SODIUM CHLORIDE 3% FOR INHALATION 4 ML/AMP VIAL.NEB IH ONE (19:05)
[2024-03-22] MEDS: MAGNESIUM OXIDE 500 MG PO SCH (19:48)
[2024-03-22] MEDS: cloPIDOgrel 75MG TAB PO SCH (19:49)
[2024-03-22] MEDS: GABApentin 100 MG CAPSULE PO SCH (19:49)
[2024-03-22] MEDS: PANTOPrazole 40 MG TAB DR PO SCH (19:50)
--- NOTE | 2024-03-22 19:57 | NUR ---
NURSE CURRENTLY UNABLE TO BRING PT DOWN, AND WILL GET CONSENT. NURSE WILL CALL WHEN READY TO BRING PT DOWN
[2024-03-22] MEDS: hydrOXYzine 25 MG TABLET PO SCH (19:59)
--- NOTE | 2024-03-22 20:46 | HMCIMG ---
HEPATOBILIARY SCAN INDICATION: Right upper abdominal pain COMPARISON: None RADIOPHARMACEUTICAL: Tc99m Choletec DOSE: 7.0 mCi given IV. TECHNIQUE: Abdominal functional images were obtained and submitted for interpretation. FINDINGS: Functional images obtained up to 60 minutes showed hepato-intestinal transit time and accumulation of activity within the gallbladder within normal limits. IMPRESSION: Negative hepatobiliary scan for acute cholecystitis or extrahepatic biliary obstruction.
--- NOTE | 2024-03-22 21:55 | CONS ---
DATE: 03/22/2024 INFECTIOUS DISEASE CONSULTATION REQUESTING PHYSICIAN: Raquel Mcpherson NP. REASON FOR CONSULTATION: Sepsis and antibiotic management. HISTORY OF PRESENT ILLNESS: A 73-year-old male with morbid obesity, obstructive sleep apnea, hypertension and CVA who presented to the hospital with altered mental status. The patient also complained of cough and fever. Lactic acid was found to be elevated. The patient's T-max was 103.5. Urinalysis was negative. CT of the chest, abdomen and pelvis shows right lung infiltrate. The patient recently returned to the [place] from [place] where he visited his mom who was at the prison. Denies sore throat or rhinorrhea. No headache, no dizziness. No slurred speech or limb weakness. PAST MEDICAL HISTORY: * Hypertension. * CVA. * Obstructive sleep apnea. * Obesity. PAST SURGICAL HISTORY: * Left knee surgery. * Shoulder surgery. ALLERGIES: * PENICILLIN. * ASPIRIN. CURRENT MEDICATIONS: Include: * Vancomycin. * Plavix. * Zosyn. * Tylenol. * Lovenox. SOCIAL HISTORY: Drinks socially. Lives with . No tobacco use. FAMILY HISTORY: Noncontributory. REVIEW OF SYSTEMS: CONSTITUTIONAL: At present, no fever or chills. No weight loss or night sweats. EYES: No eye pain, no photophobia or diplopia. HENT: No sore throat, no rhinorrhea or earache. NECK: No neck pain or neck swelling. RESPIRATORY: Positive for cough. No hemoptysis or pleuritic pain. CARDIOVASCULAR: No chest pain, no palpitation or orthopnea. GASTROINTESTINAL: Denied nausea, vomiting, or abdominal pain. GENITOURINARY: No dysuria, urgency or urinary frequency. CENTRAL NERVOUS SYSTEM: No headache, dizziness, or slurred speech. PSYCHIATRY: No depression. No suicidal ideation. MUSCULOSKELETAL: No joint pain, no joint swelling. PHYSICAL EXAMINATION: GENERAL: Elderly male, awake. VITAL SIGNS: Temperature 98.2, pulse ____, respirations 18, BP 138/62. EYES: No icterus. Pupils equal and reactive. HENT: No oral thrush seen. Moist oral mucosa. NECK: Supple, no JVD or thyromegaly. LUNGS: Good air entry. Crackles, right side. CARDIOVASCULAR: S1, S2 regular. No murmur heard. ABDOMEN: Obese, soft, nontender. Bowel sounds present. CENTRAL NERVOUS SYSTEM: Awake, alert and oriented x 3. No focal deficits. SKIN: No rashes, no itchiness. LYMPHATIC: No peripheral lymphadenopathy. MUSCULOSKELETAL: No joint swelling, erythema or tenderness. LABORATORY DATA: Lactic acid 4.6, ____. Sodium 139, potassium 4.2, BUN 15, creatinine 1.0. WBC 21.4, hemoglobin 12.0, platelet 206. RADIOLOGY: CT chest, abdomen and pelvis showed right lower lobe infiltrate. CT brain unremarkable. Influenza antigen negative. ASSESSMENT: A 73-year-old male presenting with fever and altered mental status. Current problems include: * Sepsis. * Pneumonia. * Morbid obesity. * Leukocytosis secondary to steroids. * Obstructive sleep apnea. PLAN: * Continue vancomycin. * Continue Zosyn. * Obtain sputum culture. * Continue pain management. * Continue DVT prophylaxis. * Monitor electrolytes. * The patient will follow up closely. Thank you for allowing me to participate in the care of this patient. TID: [id number] RECEIPT: [id number] MTD
[2024-03-23] VITALS (17 sets, daily range): BP systolic 116–167; BP diastolic 62–86; PULSE 60–78; RESP 16–22; TEMP 97.9–98.7; O2SAT 92–98
--- NOTE | 2024-03-23 00:30 | NUR ---
nursing pm note patient alert and oriented times 4. plan of care discussed with him and he verbalized understanding. patient is ambulatory to the toilet with assistance. He has no pain tonight. We took him to radiology for CT of the chest. Patient is sleeping with home cpap without any oxygen and sating above 93% oxygen. He has slept about 4 hours tonight. Call light within reach, bed alarm on, 2 side rails up. will continue to monitor patient.
[2024-03-23 06:43] LABS: HEMATOCRIT 35.8 % (42-54); MEAN CORPUSCULAR HEMOGLOBIN 29.4 pg (27.0-33.0); MEAN CORPUSCULAR HGB CONC 31.3 g/dL (32.0-36.0); RED BLOOD CELL COUNT(AUTO) 3.81 MIL/uL (4.50-6.20); RED CELL DISTRIBUTION WIDTH 13.5 % (11.0-15.5); WHITE BLOOD COUNT (AUTO) 16.4 K/uL (4.8-10.8)
[2024-03-23 07:07] LABS: ALBUMIN 2.8 g/dL (3.5-5.0); BILIRUBIN,TOTAL 0.5 mg/dL (0.2-1.0); POTASSIUM 3.3 mmol/L (3.5-5.1); TOTAL PROTEIN, SERUM 6.8 g/dL (6.0-8.3)
[2024-03-23] MEDS: GLUCOSAMINE PO SCH (09:00)
[2024-03-23] MEDS: EPA PO SCH (09:00)
[2024-03-23] MEDS: OMEGA PO SCH (09:00)
[2024-03-23] MEDS: FISH OIL PO SCH (09:00)
[2024-03-23] MEDS: VITAMIN E PO SCH (09:00)
[2024-03-23] MEDS: CHONDROITIN PO SCH (09:00)
[2024-03-23] MEDS: MULTIVITS MIN PO SCH (09:00)
[2024-03-23] MEDS: LUT PO SCH (09:00)
[2024-03-23] MEDS: [UNRECOGNIZED DRUG - OTHER] PO SCH (09:00)
[2024-03-23] MEDS: DHA PO SCH (09:00)
[2024-03-23] MEDS: LYCOPENE PO SCH (09:00)
[2024-03-23] MEDS: LoSARTan 100 MG TABLET PO SCH (09:22)
[2024-03-23] MEDS: hydroCHLOROthiazide 25 MG TABLET PO SCH (09:22)
[2024-03-23] MEDS: atorVAStatin 40 MG TABLET PO SCH (09:22)
[2024-03-23] MEDS: FLUoxetine HCL 20 MG CAPSULE PO SCH (09:22)
--- NOTE | 2024-03-23 13:49 | PN ---
[facility] PROGRESS NOTE Date of Service: Mar 23, 2024 Time of Service: 13:46 SUBJECTIVE: [ 73-year-old male who came into the emergency department with fever, T-max 103. We are treating the patient with sepsis, unknown source at this time, we requested CT pelvis abdomen and chest. Patient will continue with IV antibiotics currently on Levaquin and Flagyl. Appreciate recommendations from Infectious Disease. CT chest abdomen and pelvis showed right lower lobe pneumonia and mass noted. Hack Driver on board. We will continue to follow their recommendations. REVIEW OF SYSTEMS CONSTITUTIONAL: Denies fevers, chills, or night sweats. No unintentional weight loss reported. NEUROLOGICAL: Denies headache, amaurosis fugax, motor weakness, sensory deficit, vertigo/spinning sensation, gait abnormalities, or tremors. ENT: No hearing loss, otalgia, otorrhea, rhinitis, rhinorrhea, hoarseness, or sore throat. CARDIOVASCULAR: Denies any exertional angina, dyspnea on exertion, orthopnea, paroxysmal nocturnal dyspnea, palpitations, life-threatening arrhythmias, claudication. PULMONARY: Denies any shortness of breath, cough, phlegm/sputum, hemoptysis, pleuritic chest pain. SLEEP: Denies morning headaches, daytime somnolence or napping. Denies difficulty falling asleep, staying asleep, waking from sleep. Denies knowledge of snoring. GASTROINTESTINAL: Denies any type of dysphagia to either liquids or solids. Denies nausea, vomiting, pyrosis, early satiety, abdominal pain, diarrhea, constipation, or changes in stool consistency or caliber. Denies coffee-ground emesis, hematemesis, hematochezia, or melanotic stools. GENITOURINARY: Denies frequency, urgency, nocturia, hematuria or incontinence (Storage/Irritative symptoms.) Low urinary stream, straining to void, urinary intermittency or hesitancy, splitting of the voiding stream, terminal dribbling. ENDOCRINOLOGIC: Denies polyuria, polydipsia, polyphagia or heat/cold intolerances. HEMATOLOGIC: Denies thrombophilia/previous clots, or coagulopathy/bleeding disorders. ONCOLOGIC: Denies personal history of malignancy. DERMATOLOGIC: Denies rashes or pruritus. PSYCHIATRIC: Denies any suicidal or homicidal ideation. Denies hallucinations. PHYSICAL EXAM GENERAL APPEARANCE: The patient is awake, alert, and oriented, in no acute cardiopulmonary distress. NEUROLOGICAL: Cranial nerves II-XII grossly intact. Motor is 5/5 in bilateral upper and lower extremities proximal to distal. No sensory deficits. HEENT: Face is symmetric. Pupils are equal and reactive. Extraocular movements are intact. NECK: Supple. No JVD. No thyromegaly. No submental, submandibular, pre- /postauricular, occipital or supraclavicular lymphadenopathy. CHEST: Normal chest expansion. No Telemetry. LUNGS: Absence of any rales, rhonchi or any wheezing. CARDIOVASCULAR: Regular. S1 and S2 normal. No appreciable rubs, murmurs or gallops. ABDOMEN: Soft, nontender, and nondistended. There is no rebound, voluntary guarding, or rigidity. : Deferred. No White. EXTREMITIES: Non-edematous and not cyanotic. No clubbing. Good capillary refill. SKIN: No skin breakdown. Vital Signs (last 8hr) Date Time Temp Pulse Resp B/P (MAP) Pulse Ox O2 Delivery O2 Flow Rate FiO2 03/23/24 11:48 98.1 68 18 126/62 92 Room Air 03/23/24 11:32 73 18 03/23/24 08:06 97.9 69 18 139/70 98 Room Air 03/23/24 08:00 98 Room Air* 0 21 03/23/24 07:25 63 18 03/23/24 07:23 64 18 N/A Room Air 21 03/23/24 07:21 64 18 LABS: Laboratory: Test 03/23/24 06:22 03/22/24 09:59 03/22/24 07:35 03/22/24 06:14 Range/Units White Blood Count 16.4 H 4.8-10.8 K/uL Red Blood Count 3.81 L 4.50-6.20 MIL/uL Hemoglobin 11.2 L 14.0-18.0 g/dL Hematocrit 35.8 L 42-54 % Mean Corpuscular Volume 94.0 79-99 fL Mean Corpuscular Hemoglobin 29.4 27.0-33.0 pg Mean Corpuscular Hemoglobin Concent 31.3 L 32.0-36.0 g/dL Red Cell Distribution Width 13.5 11.0-15.5 % Platelet Count 205 130-400 K/uL Mean Platelet Volume 8.8 7.5-10.5 fL Nucleated Red Blood Cells 0.0 0.0-0.19 % Sodium Level 145 136-145 mmol/L Potassium Level 3.3 L 3.5-5.1 mmol/L Chloride Level 106 101-111 mmol/L Carbon Dioxide Level 32 21-32 mmol/L Blood Urea Nitrogen 15 7-18 mg/dL Creatinine 1.0 0.5-1.3 mg/dL Glomerular Filtration Rate Calc 79 >90 mL/min Random Glucose 115 H 70-105 mg/dL Total Calcium 8.5 8.5-10.1 mg/dL Magnesium Level 2.00 1.80-2.40 mg/dL Total Bilirubin 0.5 0.2-1.0 mg/dL Aspartate Amino Transf (AST/SGOT) 31 10-37 U/L Alanine Aminotransferase (ALT/SGPT) 30 12-78 U/L Alkaline Phosphatase 50 50-136 U/L Total Protein 6.8 6.0-8.3 g/dL Albumin 2.8 L 3.5-5.0 g/dL Procalcitonin 5.12 H 0.05-0.5 ng/mL Lactic Acid Level 4.6 H 0.8-2.5 mmol/L Immature Granulocyte % (Auto) 1.9 H 0-1 % Neutrophils (%) (Auto) 86.9 H 40.0-77.0 % Lymphocytes (%) (Auto) 5.1 L 21.0-51.0 % Monocytes (%) (Auto) 5.1 3.0-13.0 % Eosinophils (%) (Auto) 0.8 0.0-8.0 % Basophils (%) (Auto) 0.2 0.0-5.0 % Neutrophils # (Auto) 18.7 H 1.8-7.7 K/uL Lymphocytes # (Auto) 1.1 1.0-4.8 K/uL Monocytes # (Auto) 1.1 H 0.1-1.0 K/uL Eosinophils # (Auto) 0.17 0.00-0.70 K/uL Basophils # (Auto) 0.05 0.00-0.20 K/uL Absolute Immature Granulocyte (auto 0.41 0-1 K/uL Hemoglobin A1c 6.1 H 4.0-6.0 % Estimated Average Glucose (eAG) 128 H 70-126 mg/dL Phosphorus Level 3.7 2.5-4.9 mg/dL Test 03/21/24 19:13 03/21/24 18:50 03/21/24 18:30 Range/Units Group A Streptococcus Rapid negative NEGATIVE Influenza Type A Antigen Negative For Type A NEGATIVE Influenza Type B Antigen Negative For Type B NEGATIVE SARS-CoV-2 Antigen (Rapid) PRESUMPTIVE NEGATIVE NEGATIVE White Cell Morphology Comment See comments Urine Color YELLOW YELLOW Urine Appearance CLEAR CLEAR Urine pH 6.5 5.0-8.0 Urine Specific [place] 1.016 1.001-1.031 Urine Protein NEGATIVE NEGATIVE mg/dL Urine Glucose (UA) NEGATIVE NEGATIVE mg/dL Urine Ketones NEGATIVE NEGATIVE mg/dL Urine Occult Blood NEGATIVE NEGATIVE Urine Nitrate NEGATIVE NEGATIVE Urine Bilirubin NEGATIVE NEGATIVE mg/dL Urine Urobilinogen 0.2 0.2-1.0 mg/dL Urine Leukocyte Esterase NEGATIVE NEGATIVE [place]/uL Direct Bilirubin 0.2 0.0-0.3 mg/dL Total Creatine Kinase 203 21-232 U/L Troponin I High Sensitivity 10 4-75 ng/L Current Medications Medications (Trade) Dose Ordered Sig/Kim Route PRN Reason Start Time Stop Time Status Last Admin Dose Admin Acetaminophen (TYLenol 325MG TAB) 325 mg DAILY PRN PO pain or fever 03/22/24 12:00 04/21/24 11:59 Acetaminophen (acetaMINOPHEN) 1,000 mg ONCE IVPB 03/21/24 18:30 03/22/24 13:18 DC 03/21/24 18:49 1,000 MG Albuterol (DUOneb) 1 UDVIAL [id number] IH 03/22/24 00:00 04/21/24 00:00 03/23/24 11:32 1 UDVIAL Atorvastatin Calcium (LIPItor 40MG) 40 mg DAILY PO 03/23/24 09:00 04/22/24 08:59 03/23/24 09:22 40 MG Budesonide (Pulmicort 0.5 Mg/2ml) 0.5 mg BIDRESP IH 03/22/24 06:00 04/21/24 05:59 03/23/24 07:21 0.5 MG Clopidogrel Bisulfate (plaVIX 75MG) 75 mg HS PO 03/22/24 21:00 04/21/24 20:59 03/22/24 19:49 75 MG Enoxaparin Sodium (Lovenox) 40 mg DAILY SQ 03/22/24 09:00 04/21/24 08:59 03/23/24 09:22 40 MG Famotidine (Pepcid 20mg Tab) 20 mg DAILY PO 03/22/24 09:00 04/21/24 08:59 03/23/24 09:22 20 MG Fluoxetine HCl (FLUoxetine HCL 20 MG CAPSULE) 20 mg DAILY PO 03/23/24 09:00 04/22/24 08:59 03/23/24 09:22 20 MG Gabapentin (NEURontin 100 mg CAP) 100 mg HS PO 03/22/24 21:00 04/21/24 20:59 03/22/24 19:49 100 MG Home Med (Home Medication) (Glucosamine ... DAILY PO 03/23/24 09:00 04/22/24 08:59 Home Med (Home Medication) (Magnesium Ox... HS PO 03/22/24 21:00 04/21/24 20:59 Home Med (Home Medication) (Multivits-Min/ FA/ Lycope... DAILY PO 03/23/24 09:00 04/22/24 08:59 Home Med (Home Medication) ([place]-3/ Dha/Epa/ Fish ... DAILY PO 03/23/24 09:00 04/22/24 08:59 Home Med (Home Medication) (Vitamin E Mixed (Swetha... DAILY PO 03/23/24 09:00 04/22/24 08:59 Hydralazine HCl (APRESOLine 20MG INJ) 10 mg Q6H PRN IV For:SBP above 160;DBP above 90 03/21/24 21:00 04/20/24 20:59 Hydrochlorothiazide (hydroCHLOROthiazide 25MG) 25 mg DAILY PO 03/23/24 09:00 04/22/24 08:59 03/23/24 09:22 25 MG Hydroxyzine HCl (ATArax 25MG TAB) 25 mg HS PO 03/22/24 21:00 04/21/24 20:59 03/22/24 19:59 25 MG Lactated Ringer's 1,000 ml @ 75 mls/hr [id number] IV 03/22/24 11:00 04/21/24 10:59 03/23/24 03:29 75 MLS/HR Levofloxacin/ Dextrose (LEvaquIN 750 MG/ D5W 150 ML) 750 mg Q24H IV 03/22/24 13:30 04/01/24 13:29 03/22/24 13:36 750 MG Losartan Potassium (CozAAR 100MG TAB) 100 mg DAILY PO 03/23/24 09:00 04/22/24 08:59 03/23/24 09:22 100 MG Magnesium Sulfate 50 ml @ 0 mls/hr PROTOCOL PRN IV h 03/21/24 21:00 04/20/24 20:59 03/22/24 08:49 25 MLS/HR Metronidazole/ Sodium Chloride (flaGYL) 500 mg Q8H IV 03/22/24 13:30 04/01/24 13:29 03/23/24 03:29 500 MG Morphine Sulfate (morPHINE 2MG SYG) 2 mg Q4H PRN IVP SEVERE PAIN (7-10) 03/21/24 21:00 03/28/24 20:59 Ondansetron HCl (zoFRAN 4MG INJ) 4 mg Q6H PRN IV NAUSEA/VOMITING 03/21/24 21:00 04/20/24 20:59 Pantoprazole Sodium (PROTonix 40MG TAB) 40 mg HS PO 03/22/24 21:00 04/21/24 20:59 03/22/24 19:50 40 MG Piperacillin Sod/ Tazobactam Sod (Zosyn 3.375gm+NS 50ml) 3.375 gm Q8H IV 03/21/24 21:00 03/22/24 13:13 DC 03/22/24 03:48 3.375 GM Potassium Chloride 100 ml @ 100 mls/hr AD PRN IV POTASSIUM PROTOCOL 03/21/24 21:00 04/20/24 20:59 Potassium Chloride (K-Dur/Klor-Con 20meq) 20 meq AD PRN PO POTASSIUM PROTOCOL 03/21/24 21:00 04/20/24 20:59 03/23/24 07:28 20 MEQ Potassium Chloride (KCl 10% Elixir 20meq/15ml) 20 meq AD PRN PO POTASSIUM PROTOCOL 03/21/24 21:00 04/20/24 20:59 Vancomycin HCl 250 ml @ 167 mls/hr Q12H IV 03/22/24 13:00 03/22/24 13:13 DC Vancomycin HCl (Vancomycin Protocol) 1 each AD IV 03/22/24 12:00 03/22/24 13:13 DC DIAGNOSTICS / RADIOLOGY: [ ] ASSESSMENT: [Sepsis, POA Suspected aspiration pneumonia, POA Fever unknown source, POA Hypokalemia, POA Leukocytosis, up trending, POA Anemia, POA Hyperglycemia with diabetes mellitus type 2, POA Hypomagnesemia, POA History of stroke PLAN: [Continued patient with telemetry Continue with IV fluids Continue with IV antibiotics Patient admits to choking when eating, we will be consulting speech therapy as well Continue to monitor electrolytes and replete as necessary We will continue to monitor blood sugar with a.c. and HS glucometer and insulin sliding scale We will be consulting Infectious Disease for antibiotic stewardship We will follow up with blood culture We will request Rickettsia/typhus We will order CT abdomen pelvis and chest GI and DVT prophylaxis Repeat labs tomorrow Case discussed with Dr. Billy, above plan was formulated ] ATTESTATION BY PHYSICIAN I have seen and examined the patient. I reviewed the documentation, medical decision making, and treatment plan as noted by the mid-level provider above. I agree with the findings and plan of care. HARI BILLY MD, [facility] Mar 23, 2024 13:49
--- NOTE | 2024-03-23 16:40 | PN ---
[facility] PROGRESS NOTE Date Patient Seen: Mar 23, 2024 Time of Visit: 16:33 Supervising Physician: Dr. John Rm Reason for Consultation: Pneumonia vs lung mass PROBLEM LIST: Pneumonia versus right lung mass per CT scan on 03/22/2023 Sepsis, POA Fever unknown source, POA Hypokalemia, POA Leukocytosis, up trending, POA Anemia, POA Hyperglycemia with diabetes mellitus type 2, POA Hypomagnesemia, POA INTERVAL HISTORY: Patient evaluated at bedside, he is currently on room air and denies any chest pain or shortness of breath. CT with contrast shows right hilar mass as s uspected, we will evaluate the patient for bronchoscopy. He is currently on Plavix, we will hold this starting tonight and evaluate the patient for possible bronchoscopy during this admission. Continue with the current treatment plan, we will continue to follow this patient closely on this admission. REVIEW OF SYSTEMS: 12 point ROS reviewed with patient. Pertinent positives mentioned above. Otherwise negative. PHYSICAL EXAM: GENERAL: alert, weak, awake oriented x 3 HEENT: EOMI, Sclera non icteric, moist mucosa NECK: Supple, no JVD, trachea midline LUNGS: Clear breath sounds bilaterally. No wheezes HEART: Regular rate and rhythm. Normal S1 and S2, without murmurs ABD: Abdomen soft, nontender. Bowel sounds present EXT: No clubbing cyanosis or edema NEURO: Alert and oriented to person, follows commands Vital Signs (last 8hr) Date Time Temp Pulse Resp B/P (MAP) Pulse Ox O2 Delivery O2 Flow Rate FiO2 03/23/24 11:48 98.1 68 18 126/62 92 Room Air 03/23/24 11:32 73 18 LABS: Hematology Labs: Test 03/23/24 06:22 03/22/24 07:35 03/21/24 18:30 Range/Units White Blood Count 16.4 H 4.8-10.8 K/uL Red Blood Count 3.81 L 4.50-6.20 MIL/uL Hemoglobin 11.2 L 14.0-18.0 g/dL Hematocrit 35.8 L 42-54 % Mean Corpuscular Volume 94.0 79-99 fL Mean Corpuscular Hemoglobin 29.4 27.0-33.0 pg Mean Corpuscular Hemoglobin Concent 31.3 L 32.0-36.0 g/dL Red Cell Distribution Width 13.5 11.0-15.5 % Platelet Count 205 130-400 K/uL Mean Platelet Volume 8.8 7.5-10.5 fL Nucleated Red Blood Cells 0.0 0.0-0.19 % Immature Granulocyte % (Auto) 1.9 H 0-1 % Neutrophils (%) (Auto) 86.9 H 40.0-77.0 % Lymphocytes (%) (Auto) 5.1 L 21.0-51.0 % Monocytes (%) (Auto) 5.1 3.0-13.0 % Eosinophils (%) (Auto) 0.8 0.0-8.0 % Basophils (%) (Auto) 0.2 0.0-5.0 % Neutrophils # (Auto) 18.7 H 1.8-7.7 K/uL Lymphocytes # (Auto) 1.1 1.0-4.8 K/uL Monocytes # (Auto) 1.1 H 0.1-1.0 K/uL Eosinophils # (Auto) 0.17 0.00-0.70 K/uL Basophils # (Auto) 0.05 0.00-0.20 K/uL Absolute Immature Granulocyte (auto 0.41 0-1 K/uL White Cell Morphology Comment See comments Chemistry Labs: Test 03/23/24 06:22 03/22/24 09:59 03/22/24 07:35 03/22/24 06:14 Range/Units Sodium Level 145 136-145 mmol/L Potassium Level 3.3 L 3.5-5.1 mmol/L Chloride Level 106 101-111 mmol/L Carbon Dioxide Level 32 21-32 mmol/L Blood Urea Nitrogen 15 7-18 mg/dL Creatinine 1.0 0.5-1.3 mg/dL Glomerular Filtration Rate Calc 79 >90 mL/min Random Glucose 115 H 70-105 mg/dL Total Calcium 8.5 8.5-10.1 mg/dL Magnesium Level 2.00 1.80-2.40 mg/dL Total Bilirubin 0.5 0.2-1.0 mg/dL Aspartate Amino Transf (AST/SGOT) 31 10-37 U/L Alanine Aminotransferase (ALT/SGPT) 30 12-78 U/L Alkaline Phosphatase 50 50-136 U/L Total Protein 6.8 6.0-8.3 g/dL Albumin 2.8 L 3.5-5.0 g/dL Procalcitonin 5.12 H 0.05-0.5 ng/mL Lactic Acid Level 4.6 H 0.8-2.5 mmol/L Hemoglobin A1c 6.1 H 4.0-6.0 % Estimated Average Glucose (eAG) 128 H 70-126 mg/dL Phosphorus Level 3.7 2.5-4.9 mg/dL Test 03/21/24 18:30 Range/Units Direct Bilirubin 0.2 0.0-0.3 mg/dL Total Creatine Kinase 203 21-232 U/L Troponin I High Sensitivity 10 4-75 ng/L DIAGNOSTICS / RADIOLOGY RESULTS: [ ] PLAN NEURO: Minimize central acting medications as possible. Maintain fall precautions, adequate lighting during the day PULMONARY: Supplemental 02 as needed. Maintain aspiration precautions at all times CARDIOVASCULAR: Follow hemodynamics. Vital signs per facility protocol GI & NUTRITION: Continue with nutritional support. Continue stool softeners and laxatives as needed. KIDNEYS & ELECTROLYTES: Strict monitoring of intake, output and overall fluid balance. Avoid nephrotoxic medications to the extent possible. Medications to be dosed according to renal function. Monitor electrolytes and replace as needed ENDOCRINE: Maintain blood glucose between 100-180 at all times. Hypoglycemia protocol in place INFECTIOUS DISEASE: Trend temperature, WBC and procalcitonin level Follow cultures, deescalate antibiotics as soon as possible. Panculture if new onset fever ONCOLOGY/HEMATOLOGY/COAGULATION: Monitor for s/s of bleeding Monitor hemoglobin, coagulation studies as needed SKIN: Pressure ulcer prevention per facility protocol Specialty mattress ORTHO/REHAB: Continue PT/OT Prophylaxis: Continue GI and DVT prophylaxis Code Status: Full Resuscitation Disposition: TBD Other: Total patient care time exceeds 35 minutes excluding all procedures. CLOVER JANE Mar 23, 2024 16:40
[2024-03-23 17:47] LABS: INR 0.95 (0.85-1.15); PROTHROMBIN TIME 10.7 SEC (9.6-11.6)
--- NOTE | 2024-03-23 18:21 | HMCIMG ---
CT CHEST WITH CONTRAST: INDICATION: pulm mass. CONTRAST: 75 ml of Omnipaque 350 IV. FINDINGS: There is small soft tissue mass demonstrated at the base of the right hilum that measures 4.7 x 2.7 x 3.8 cm and abuts the visceral pleura. This appears to encase small airways. There is no identified postobstructive pneumonia. There is minimal adjacent groundglass opacification. This does not appear to demonstrate enhancement but is still concerning for potential neoplasm. Small cell may represent a small area of focal consolidation. Mediastinum is free of pathologic size lymph nodes. Note is made of advanced left anterior descending coronary artery calcified atherosclerotic vascular disease. Again demonstrated is cholelithiasis. IMPRESSION: Right inferior hilar soft tissue mass with airway encasement and small amount groundglass opacification. This may represent a small area of consolidation or neoplasm however does not appear to enhance based on Hounsfield unit measurements between the unenhanced and enhanced exam. This would be difficult to percutaneously biopsy and recommend bronchoscopy or PET scan for further evaluation..
--- NOTE | 2024-03-23 18:30 | NUR ---
SPEECH LANGUAGE EVALUATION COMPLETED: Speech, language, and cognitive linguistic skills are within functional limits. Patient oriented x4, and expressed wants and needs independently with clear speech intelligibility. Patient responded accurately to yes/no questions, naming body parts, naming objects, sentence completion, automatic speech tasks, problem solving, abstract reasoning, generative naming, short term memory recall, and following 1-3 step simple and complex commands. No aphasia, no apraxia to speech, and no anomias present at time of evaluation. Speech therapy not warranted at this time. Patient voiced understanding. PRESTRESSED CONCRETE LABORER reviewed results with patient and nurse Martha. All questions answered. Addendum: 03/23/24 at 1944 by NAA CASTRO Amended: Links added.
--- NOTE | 2024-03-23 19:00 | NUR ---
BEDSIDE SWALLOW EVAL COMPLETED. + s/s of aspiration. Recommend mechanical soft and moist chopped solids, thin liquids, and whole meds as tolerated. COMPENSATORY STRATEGIES 1. Sit upright 2. slow oral intake 3. Alt liquids and solids 4. Extra dry swallow MICROCOMPUTER SUPPORT SPECIALIST reviewed results and recommendations with patient and nurse Martha. MICROCOMPUTER SUPPORT SPECIALIST educated patient on risk and consequences of aspiration. Speech therapy warranted at this time to address dysphagia. All questions answered. RECOMMENDATIONS: Dysphagia therapy 1-3x week to improve oral and pharyngeal swallow: LTG#1: Pt will tolerate least restrictive diet to meet nutrition/hydration with no s/s of aspiration. LTG#2: Skilled education Pt/family/staff STG#1: Pt will participate in laryngeal elevation/excursion exercises with 90% accuracy. STG#2: Pt will participate in tongue based retraction exercises with 90% accuracy with min asst. STG#3: Pt will participate in oral motor exercises with 90% accuracy with min asst. STG#4 Pt will tolerate a modified diet of chopped/moist solids with no overt s/s of aspiration. STG#5 Pt will participate in therapeutic trials of regular solids with no overt s/s of aspiration. STG#6: Skilled education with pt/family/staff Addendum: 03/23/24 at 1999 by NAA CASTRO Amended: Links added.
--- NOTE | 2024-03-23 19:18 | PN ---
DATE OF 03/23/2024 INFECTIOUS DISEASE FOLLOWUP NOTE SUBJECTIVE: The patient is seen and examined at bedside today. No fever or chills. Cough is improving. No hemoptysis or pleuritic pain. No chest pain, no palpitation or orthopnea. No depression. No suicidal ideation. No heat or cold intolerance. No bleeding tendency. No dysuria or hematuria. No slurred speech or limb weakness. PHYSICAL EXAMINATION: VITAL SIGNS: Temperature 97.6. EYES: No icterus. Pupils equal and reactive. HENT: No oral thrush seen. Moist oral mucosa. NECK: Supple, no JVD or thyromegaly. LUNGS: Good air entry. No rales, no rhonchi. CARDIOVASCULAR: S1, S2 regular. No murmur heard. ABDOMEN: Full, soft, nontender. Bowel sound is present. CENTRAL NERVOUS SYSTEM: Awake, alert, oriented x 3. No focal deficits. SKIN: No rashes, no itchiness. LYMPHATIC: No peripheral lymphadenopathy. MUSCULOSKELETAL: No joint swelling, erythema or tenderness. BACK: No deformity, no pressure ulcer. LABORATORY DATA: WBC 16.4, hemoglobin 11.2, platelets 205. Sodium 145, potassium 3.5. Blood culture, no growth for one day. ASSESSMENT: A 73-year-old male presenting with fever and chills. Current problems include: * Sepsis. * Pneumonia. * Morbid obesity. * Obstructive sleep apnea. * Leukocytosis. PLAN: * Continue levofloxacin. * Follow up cultures. * Continue CPAP. * Continue pain management. * Continue DVT prophylaxis. * Monitor electrolytes. * The patient will be followed up closely. TID: [id number] RECEIPT: [id number] [facility]
[2024-03-23] MEDS: hydrALAZine 20MG/ML VIAL IV PRN (23:13)
[2024-03-24] VITALS (7 sets, daily range): BP systolic 147–163; BP diastolic 68–79; PULSE 61–67; RESP 18–20; TEMP 97.7–98.1; O2SAT 95–97
--- NOTE | 2024-03-24 01:01 | NUR ---
nursing pm note patient alert and oriented times 4. plan of care discussed with him and he verbalized understanding. He took his pills whole one at a time with no difficulty and no coughing. He has no pain tonight. He is ambulatory to the restroom. He was calm reading his book and watching television. He has slept about 5 hours tonight. call light within reach, bed alarm on, 2 side rails up. will continue to monitor patient.
[2024-03-24 04:17] LABS: HEMATOCRIT 34.4 % (42-54); MEAN CORPUSCULAR HEMOGLOBIN 29.9 pg (27.0-33.0); MEAN CORPUSCULAR HGB CONC 32.3 g/dL (32.0-36.0); MEAN CORPUSCULAR VOLUME 92.7 fL (79-99); NUCLEATED RED BLOOD CELLS 0.2 % (0.0-0.19); RED BLOOD CELL COUNT(AUTO) 3.71 MIL/uL (4.50-6.20); RED CELL DISTRIBUTION WIDTH 13.2 % (11.0-15.5); WHITE BLOOD COUNT (AUTO) 12.4 K/uL (4.8-10.8)
[2024-03-24 04:33] LABS: CREATININE 1.1 mg/dL (0.5-1.3); MAGNESIUM 1.7 mg/dL (1.80-2.40); POTASSIUM 3.7 mmol/L (3.5-5.1)
--- NOTE | 2024-03-24 11:57 | PN ---
[facility] PROGRESS NOTE Date of Service: Mar 24, 2024 Time of Service: 11:57 SUBJECTIVE: [ 73-year-old male who came into the emergency department with fever, T-max 103. We are treating the patient with sepsis, unknown source at this time, we requested CT pelvis abdomen and chest. Patient will continue with IV antibiotics currently on Levaquin and Flagyl. Appreciate recommendations from Infectious Disease. CT chest abdomen and pelvis showed right lower lobe pneumonia and mass noted. 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 We will continue to follow their recommendations. REVIEW OF SYSTEMS CONSTITUTIONAL: Denies fevers, chills, or night sweats. No unintentional weight loss reported. NEUROLOGICAL: Denies headache, amaurosis fugax, motor weakness, sensory deficit, vertigo/spinning sensation, gait abnormalities, or tremors. ENT: No hearing loss, otalgia, otorrhea, rhinitis, rhinorrhea, hoarseness, or sore throat. CARDIOVASCULAR: Denies any exertional angina, dyspnea on exertion, orthopnea, paroxysmal nocturnal dyspnea, palpitations, life-threatening arrhythmias, claudication. PULMONARY: Denies any shortness of breath, cough, phlegm/sputum, hemoptysis, pleuritic chest pain. SLEEP: Denies morning headaches, daytime somnolence or napping. Denies difficulty falling asleep, staying asleep, waking from sleep. Denies knowledge of snoring. GASTROINTESTINAL: Denies any type of dysphagia to either liquids or solids. Denies nausea, vomiting, pyrosis, early satiety, abdominal pain, diarrhea, constipation, or changes in stool consistency or caliber. Denies coffee-ground emesis, hematemesis, hematochezia, or melanotic stools. GENITOURINARY: Denies frequency, urgency, nocturia, hematuria or incontinence (Storage/Irritative symptoms.) Low urinary stream, straining to void, urinary intermittency or hesitancy, splitting of the voiding stream, terminal dribbling. ENDOCRINOLOGIC: Denies polyuria, polydipsia, polyphagia or heat/cold intolerances. HEMATOLOGIC: Denies thrombophilia/previous clots, or coagulopathy/bleeding disorders. ONCOLOGIC: Denies personal history of malignancy. DERMATOLOGIC: Denies rashes or pruritus. PSYCHIATRIC: Denies any suicidal or homicidal ideation. Denies hallucinations. PHYSICAL EXAM GENERAL APPEARANCE: The patient is awake, alert, and oriented, in no acute cardiopulmonary distress. NEUROLOGICAL: Cranial nerves II-XII grossly intact. Motor is 5/5 in bilateral upper and lower extremities proximal to distal. No sensory deficits. HEENT: Face is symmetric. Pupils are equal and reactive. Extraocular movements are intact. NECK: Supple. No JVD. No thyromegaly. No submental, submandibular, pre- /postauricular, occipital or supraclavicular lymphadenopathy. CHEST: Normal chest expansion. No Telemetry. LUNGS: Absence of any rales, rhonchi or any wheezing. CARDIOVASCULAR: Regular. S1 and S2 normal. No appreciable rubs, murmurs or gallops. ABDOMEN: Soft, nontender, and nondistended. There is no rebound, voluntary guarding, or rigidity. : Deferred. No White. EXTREMITIES: Non-edematous and not cyanotic. No clubbing. Good capillary refill. SKIN: No skin breakdown. Vital Signs (last 8hr) Date Time Temp Pulse Resp B/P (MAP) Pulse Ox O2 Delivery O2 Flow Rate FiO2 03/24/24 11:28 64 18 03/24/24 08:00 97.7 67 19 155/68 95 CPAP 03/24/24 06:29 66 20 N/A Room Air 21 03/24/24 06:27 66 18 LABS: Laboratory: Test 03/24/24 04:02 03/23/24 17:25 03/23/24 06:22 Range/Units White Blood Count 12.4 H 4.8-10.8 K/uL Red Blood Count 3.71 L 4.50-6.20 MIL/uL Hemoglobin 11.1 L 14.0-18.0 g/dL Hematocrit 34.4 L 42-54 % Mean Corpuscular Volume 92.7 79-99 fL Mean Corpuscular Hemoglobin 29.9 27.0-33.0 pg Mean Corpuscular Hemoglobin Concent 32.3 32.0-36.0 g/dL Red Cell Distribution Width 13.2 11.0-15.5 % Platelet Count 216 130-400 K/uL Mean Platelet Volume 8.9 7.5-10.5 fL Nucleated Red Blood Cells 0.2 H 0.0-0.19 % Sodium Level 146 H 136-145 mmol/L Potassium Level 3.7 3.5-5.1 mmol/L Chloride Level 107 101-111 mmol/L Carbon Dioxide Level 31 21-32 mmol/L Blood Urea Nitrogen 15 7-18 mg/dL Creatinine 1.1 0.5-1.3 mg/dL Glomerular Filtration Rate Calc 71 >90 mL/min Random Glucose 95 70-105 mg/dL Total Calcium 8.7 8.5-10.1 mg/dL Magnesium Level 1.70 L 1.80-2.40 mg/dL Prothrombin Time 10.7 9.6-11.6 SEC Prothromb Time International Ratio 0.95 0.85-1.15 Total Bilirubin 0.5 0.2-1.0 mg/dL Aspartate Amino Transf (AST/SGOT) 31 10-37 U/L Alanine Aminotransferase (ALT/SGPT) 30 12-78 U/L Alkaline Phosphatase 50 50-136 U/L Total Protein 6.8 6.0-8.3 g/dL Albumin 2.8 L 3.5-5.0 g/dL Procalcitonin 5.12 H 0.05-0.5 ng/mL Current Medications Medications (Trade) Dose Ordered Sig/Kim Route PRN Reason Start Time Stop Time Status Last Admin Dose Admin Acetaminophen (TYLenol 325MG TAB) 325 mg DAILY PRN PO pain or fever 03/22/24 12:00 04/21/24 11:59 Acetaminophen (acetaMINOPHEN) 1,000 mg ONCE IVPB 03/21/24 18:30 03/22/24 13:18 DC 03/21/24 18:49 1,000 MG Albuterol (DUOneb) 1 UDVIAL [id number] IH 03/22/24 00:00 04/21/24 00:00 03/24/24 11:28 1 UDVIAL Atorvastatin Calcium (LIPItor 40MG) 40 mg DAILY PO 03/23/24 09:00 04/22/24 08:59 03/24/24 09:57 40 MG Budesonide (Pulmicort 0.5 Mg/2ml) 0.5 mg BIDRESP IH 03/22/24 06:00 04/21/24 05:59 03/24/24 06:30 0.5 MG Clopidogrel Bisulfate (plaVIX 75MG) 75 mg HS PO 03/22/24 21:00 04/21/24 20:59 Hold 03/22/24 19:49 75 MG Enoxaparin Sodium (Lovenox) 40 mg DAILY SQ 03/22/24 09:00 04/21/24 08:59 03/24/24 10:01 40 MG Famotidine (Pepcid 20mg Tab) 20 mg DAILY PO 03/22/24 09:00 04/21/24 08:59 03/24/24 09:58 20 MG Fluoxetine HCl (FLUoxetine HCL 20 MG CAPSULE) 20 mg DAILY PO 03/23/24 09:00 04/22/24 08:59 03/24/24 09:57 20 MG Gabapentin (NEURontin 100 mg CAP) 100 mg HS PO 03/22/24 21:00 04/21/24 20:59 03/23/24 20:21 100 MG Home Med (Home Medication) (Glucosamine ... DAILY PO 03/23/24 09:00 04/22/24 08:59 Home Med (Home Medication) (Magnesium Ox... HS PO 03/22/24 21:00 04/21/24 20:59 Home Med (Home Medication) (Multivits-Min/ FA/ Lycope... DAILY PO 03/23/24 09:00 04/22/24 08:59 Home Med (Home Medication) ([place]-3/ Dha/Epa/ Fish ... DAILY PO 03/23/24 09:00 04/22/24 08:59 Home Med (Home Medication) (Vitamin E Mixed (Swetha... DAILY PO 03/23/24 09:00 04/22/24 08:59 Hydralazine HCl (APRESOLine 20MG INJ) 10 mg Q6H PRN IV For:SBP above 160;DBP above 90 03/21/24 21:00 04/20/24 20:59 03/23/24 23:13 10 MG Hydrochlorothiazide (hydroCHLOROthiazide 25MG) 25 mg DAILY PO 03/23/24 09:00 04/22/24 08:59 03/24/24 09:58 25 MG Hydroxyzine HCl (ATArax 25MG TAB) 25 mg HS PO 03/22/24 21:00 04/21/24 20:59 03/23/24 20:21 25 MG Lactated Ringer's 1,000 ml @ 75 mls/hr [id number] IV 03/22/24 11:00 04/21/24 10:59 03/23/24 23:13 75 MLS/HR Levofloxacin/ Dextrose (LEvaquIN 750 MG/ D5W 150 ML) 750 mg Q24H IV 03/22/24 13:30 04/01/24 13:29 03/23/24 13:48 750 MG Losartan Potassium (CozAAR 100MG TAB) 100 mg DAILY PO 03/23/24 09:00 04/22/24 08:59 03/24/24 09:58 100 MG Magnesium Sulfate 50 ml @ 0 mls/hr PROTOCOL PRN IV h 03/21/24 21:00 04/20/24 20:59 03/24/24 05:23 15 MLS/HR Metronidazole/ Sodium Chloride (flaGYL) 500 mg Q8H IV 03/22/24 13:30 04/01/24 13:29 03/24/24 04:29 500 MG Morphine Sulfate (morPHINE 2MG SYG) 2 mg Q4H PRN IVP SEVERE PAIN (7-10) 03/21/24 21:00 03/28/24 20:59 Ondansetron HCl (zoFRAN 4MG INJ) 4 mg Q6H PRN IV NAUSEA/VOMITING 03/21/24 21:00 04/20/24 20:59 Pantoprazole Sodium (PROTonix 40MG TAB) 40 mg HS PO 03/22/24 21:00 04/21/24 20:59 03/23/24 20:21 40 MG Piperacillin Sod/ Tazobactam Sod (Zosyn 3.375gm+NS 50ml) 3.375 gm Q8H IV 03/21/24 21:00 03/22/24 13:13 DC 03/22/24 03:48 3.375 GM Potassium Chloride 100 ml @ 100 mls/hr AD PRN IV POTASSIUM PROTOCOL 03/21/24 21:00 04/20/24 20:59 Potassium Chloride (K-Dur/Klor-Con 20meq) 20 meq AD PRN PO POTASSIUM PROTOCOL 03/21/24 21:00 04/20/24 20:59 03/24/24 09:58 20 MEQ Potassium Chloride (KCl 10% Elixir 20meq/15ml) 20 meq AD PRN PO POTASSIUM PROTOCOL 03/21/24 21:00 04/20/24 20:59 Vancomycin HCl 250 ml @ 167 mls/hr Q12H IV 03/22/24 13:00 03/22/24 13:13 DC Vancomycin HCl (Vancomycin Protocol) 1 each AD IV 03/22/24 12:00 03/22/24 13:13 DC DIAGNOSTICS / RADIOLOGY: [ ] ASSESSMENT: [Sepsis, POA Suspected aspiration pneumonia, POA Fever unknown source, POA Hypokalemia, POA Leukocytosis, up trending, POA Anemia, POA Hyperglycemia with diabetes mellitus type 2, POA Hypomagnesemia, POA History of stroke PLAN: [Continued patient with telemetry Continue with IV fluids Continue with IV antibiotics Patient admits to choking when eating, we will be consulting speech therapy as well Continue to monitor electrolytes and replete as necessary We will continue to monitor blood sugar with a.c. and HS glucometer and insulin sliding scale We will be consulting Infectious Disease for antibiotic stewardship We will follow up with blood culture We will request Rickettsia/typhus We will order CT abdomen pelvis and chest GI and DVT prophylaxis Repeat labs tomorrow Case discussed with Dr. Matson, above plan was formulated ] JESSY PARTIDA MD Mar 24, 2024 11:57
[2024-03-24] MEDS ORDERED: METR-172 PO (15:21)
--- NOTE | 2024-03-24 15:21 | PN ---
[facility] PROGRESS NOTE Date Patient Seen: Mar 24, 2024 Time of Visit: 15:14 Supervising Physician: Dr. John Rm Reason for Consultation: Pneumonia vs lung mass PROBLEM LIST: Pneumonia versus right lung mass per CT scan on 03/22/2023 Sepsis, POA Fever unknown source, POA Hypokalemia, POA Leukocytosis, up trending, POA Anemia, POA Hyperglycemia with diabetes mellitus type 2, POA Hypomagnesemia, POA INTERVAL HISTORY: Patient was evaluated at bedside with family present, my attending physician was present as well. 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 Patient was amenable to EBUS to be performed at [facility] later this week as the patient received his last dose of Plavix on 03/22/2024. Patient was advised to continue holding Plavix, upon discharge patient we will seek an appointment with Dr. Merida at [facility] we will be evaluated and scheduled for EBUS procedure to be performed at [facility] after he has been off Plavix for a minimum of 72 hours. Patient feels well at this time, he understands the risk and benefits of the procedure it was amenable to the current treatment plan. Disposition per primary, follow up at [facility] following his discharge to schedule the procedure. Recommended that the patient remain off Plavix if his procedure can be planned for this week or early next week. REVIEW OF SYSTEMS: 12 point ROS reviewed with patient. Pertinent positives mentioned above. Otherwise negative. PHYSICAL EXAM: GENERAL: alert, weak, awake oriented x 3 HEENT: EOMI, Sclera non icteric, moist mucosa NECK: Supple, no JVD, trachea midline LUNGS: Clear breath sounds bilaterally. No wheezes HEART: Regular rate and rhythm. Normal S1 and S2, without murmurs ABD: Abdomen soft, nontender. Bowel sounds present EXT: No clubbing cyanosis or edema NEURO: Alert and oriented to person, follows commands Vital Signs (last 8hr) Date Time Temp Pulse Resp B/P (MAP) Pulse Ox O2 Delivery O2 Flow Rate FiO2 03/24/24 12:00 98.1 61 19 163/78 98 Room Air 03/24/24 11:28 64 18 03/24/24 08:00 97.7 67 19 155/68 95 CPAP 03/24/24 08:00 95 Room Air* 0 21 LABS: Hematology Labs: Test 03/24/24 04:02 Range/Units White Blood Count 12.4 H 4.8-10.8 K/uL Red Blood Count 3.71 L 4.50-6.20 MIL/uL Hemoglobin 11.1 L 14.0-18.0 g/dL Hematocrit 34.4 L 42-54 % Mean Corpuscular Volume 92.7 79-99 fL Mean Corpuscular Hemoglobin 29.9 27.0-33.0 pg Mean Corpuscular Hemoglobin Concent 32.3 32.0-36.0 g/dL Red Cell Distribution Width 13.2 11.0-15.5 % Platelet Count 216 130-400 K/uL Mean Platelet Volume 8.9 7.5-10.5 fL Nucleated Red Blood Cells 0.2 H 0.0-0.19 % Chemistry Labs: Test 03/24/24 04:02 03/23/24 06:22 Range/Units Sodium Level 146 H 136-145 mmol/L Potassium Level 3.7 3.5-5.1 mmol/L Chloride Level 107 101-111 mmol/L Carbon Dioxide Level 31 21-32 mmol/L Blood Urea Nitrogen 15 7-18 mg/dL Creatinine 1.1 0.5-1.3 mg/dL Glomerular Filtration Rate Calc 71 >90 mL/min Random Glucose 95 70-105 mg/dL Total Calcium 8.7 8.5-10.1 mg/dL Magnesium Level 1.70 L 1.80-2.40 mg/dL Total Bilirubin 0.5 0.2-1.0 mg/dL Aspartate Amino Transf (AST/SGOT) 31 10-37 U/L Alanine Aminotransferase (ALT/SGPT) 30 12-78 U/L Alkaline Phosphatase 50 50-136 U/L Total Protein 6.8 6.0-8.3 g/dL Albumin 2.8 L 3.5-5.0 g/dL Procalcitonin 5.12 H 0.05-0.5 ng/mL Coagulation Labs: Test 03/23/24 17:25 Range/Units Prothrombin Time 10.7 9.6-11.6 SEC Prothromb Time International Ratio 0.95 0.85-1.15 DIAGNOSTICS / RADIOLOGY RESULTS: [ ] PLAN NEURO: Minimize central acting medications as possible. Maintain fall precautions, adequate lighting during the day PULMONARY: Supplemental 02 as needed. Maintain aspiration precautions at all times CARDIOVASCULAR: Follow hemodynamics. Vital signs per facility protocol GI & NUTRITION: Continue with nutritional support. Continue stool softeners and laxatives as needed. KIDNEYS & ELECTROLYTES: Strict monitoring of intake, output and overall fluid balance. Avoid nephrotoxic medications to the extent possible. Medications to be dosed according to renal function. Monitor electrolytes and replace as needed ENDOCRINE: Maintain blood glucose between 100-180 at all times. Hypoglycemia protocol in place INFECTIOUS DISEASE: Trend temperature, WBC and procalcitonin level Follow cultures, deescalate antibiotics as soon as possible. Panculture if new onset fever ONCOLOGY/HEMATOLOGY/COAGULATION: Monitor for s/s of bleeding Monitor hemoglobin, coagulation studies as needed SKIN: Pressure ulcer prevention per facility protocol Specialty mattress ORTHO/REHAB: Continue PT/OT Prophylaxis: Continue GI and DVT prophylaxis Code Status: Full Resuscitation Disposition: TBD Other: Total patient care time exceeds 35 minutes excluding all procedures. CLOVER JANE Mar 24, 2024 15:21
[2024-03-24] MEDS ORDERED: LEVO750T68 PO (15:22)
--- NOTE | 2024-03-24 16:22 | NUR ---
PATIENT D/C HOME. NO S/S OF DISTRESS NOTED. MEDICATIONS REVIEWED WITH PATIENT WELL F/U APPOINTMENTS. PATIENT AND SPOUSE VERBALIZED UNDERSTANDING. PATIENT WHEELED DOWNSTAIRS AND TRANSFERRED TO PERSONAL VEHICLE
--- NOTE | 2024-03-24 22:43 | PN ---
DATE OF 03/24/2024 INFECTIOUS DISEASE FOLLOWUP NOTE SUBJECTIVE: The patient is seen and examined at bedside today. No fever. No chills. Cough is better. No nausea, no vomiting, no abdominal pain. The patient is tolerating orally. No depression. No suicidal ideation. No heat or cold intolerance. PHYSICAL EXAMINATION: VITAL SIGNS: Temperature today 97.2. EYES: No icterus. Pupils equal and reactive. HENT: No oral thrush seen. Moist oral mucosa. NECK: Supple. No JVD or thyromegaly. LUNGS: Crackles to right side. CARDIOVASCULAR SYSTEM: S1, S2 regular. No murmurs or gallop. ABDOMEN: Obese, soft. Bowel sounds are present. CENTRAL NERVOUS SYSTEM: Awake, alert, oriented x 3. No focal deficits. SKIN: No rashes, no itchiness. LYMPHATIC: No peripheral lymphadenopathy. BACK: No deformity. No pressure ulcer. ASSESSMENT: A 73-year-old male with multiple problems, which include: * Sepsis. * Pneumonia. * Obesity. * Hypertension. * Obstructive sleep apnea. PLAN: * Continue Zosyn. * Continue nutritional support. * Continue GI prophylaxis. * Continue pain management. * Monitor electrolytes. * Continue DVT prophylaxis. TID: [id number] RECEIPT: [id number] MTDD
--- NOTE | 2024-03-25 11:16 | DS ---
Discharge Summary Hospital Course Summary: 73-year-old male who came into the emergency department with fever, T-max 103. Patient started on treatment for sepsis with IV antibiotics Levaquin and Flagyl, unknown source at the time. Infectious disease consulted. CT scan with contrast shows a right lung mass with mediastinal lymph node involvement. [employer] consulted. 03/24/24: Patient is feeling well and feels ready to go home. Leukocytosis downtrending, improved to 12.4 today from 21.5 on 03/22/24. Patient is afebrile and hemodynamically stable. Patient will be discharged and advised to follow up with pulmonology as outpatient. Patient agreeing to EBUS to be performed with Dr. Merida at [facility] later this week as the patient received his last dose of Plavix on 03/22/2024. Patient was advised to continue holding Plavix for at least 72 hours before EBUS. Patient will continue on metronidazole and Levaquin and advised to follow up with pulmonology for sputum cultures results. Sales Professional(s): Pulmonology, Infectious Disease. Procedure(s): PATIENT: STEPH STOUT MR#: [id number] : 1950 SEX: M AGE: 73 LOCATION: [facility] ORDER 1858 STATUS: ADM IN REPORT#: [id number] SERVICE 1846 REASON: pulm mass ORDERING PHYSICIAN: CLOVER JANE PROCEDURE: CHEST W - CT CHEST W/CONTRAST CT CHEST WITH CONTRAST: INDICATION: pulm mass. CONTRAST: 75 ml of Omnipaque 350 IV. FINDINGS: There is small soft tissue mass demonstrated at the base of the right hilum that measures 4.7 x 2.7 x 3.8 cm and abuts the visceral pleura. This appears to encase small airways. There is no identified postobstructive pneumonia. There is minimal adjacent groundglass opacification. This does not appear to demonstrate enhancement but is still concerning for potential neoplasm. Small cell may represent a small area of focal consolidation. Mediastinum is free of pathologic size lymph nodes. Note is made of advanced left anterior descending coronary artery calcified atherosclerotic vascular disease. Again demonstrated is cholelithiasis. IMPRESSION: Right inferior hilar soft tissue mass with airway encasement and small amount groundglass opacification. This may represent a small area of consolidation or neoplasm however does not appear to enhance based on Hounsfield unit measurements between the unenhanced and enhanced exam. This would be difficult to percutaneously biopsy and recommend bronchoscopy or PET scan for further evaluation.. DICTATED BY: OLIVIA GOODMAN DO DATE: 03/23/241812 PATIENT: STEPH STOUT MR#: [id number] : 1950 SEX: M AGE: 73 LOCATION: 4B ORDER 1312 STATUS: ADM IN REPORT#: [id number] SERVICE 1311 REASON: rule out acute cholecystitis ORDERING PHYSICIAN: HARI BILLY MD PROCEDURE: HIDAWO - NM HIDA WO EF/CCK HEPATOBILIARY SCAN INDICATION: Right upper abdominal pain COMPARISON: None RADIOPHARMACEUTICAL: Tc99m Choletec DOSE: 7.0 mCi given IV. TECHNIQUE: Abdominal functional images were obtained and submitted for interpretation. FINDINGS: Functional images obtained up to 60 minutes showed hepato-intestinal transit time and accumulation of activity within the gallbladder within normal limits. IMPRESSION: Negative hepatobiliary scan for acute cholecystitis or extrahepatic biliary obstruction. PATIENT: STEPH STOUT MR#: [id number] : 1950 SEX: M AGE: 73 LOCATION: [facility] ORDER 1044 STATUS: ADM IN REPORT#: [id number] SERVICE 1043 REASON: fever ORDERING PHYSICIAN: PIHL RYDER PROCEDURE: CAP WO - CT CHEST/ABD/PELV W/O CONTRAST CT CHEST/ABD/PELV W/O CONTRAST CLINICAL HISTORY: fever COMPARISON: None TECHNIQUE: Sequential axial images of chest abdomen and pelvis without contrast and with sagittal and coronal reconstructions. CT was performed with one or more of the following dose reduction techniques: automated exposure control, adjustment of the mA and/or kV according to patient size, or use of iterative reconstruction technique FINDINGS: There is a small area of groundglass opacification and areas of atelectasis or small soft tissue mass demonstrated in the inferior aspect of the right hilum. There is also mild atelectasis in the right lower lobe. Mediastinum is free of pathologic size lymph nodes. Note is made of advanced calcified left anterior coronary artery disease. There is diffuse fatty infiltration liver. The spleen is unremarkable. There is large gallbladder calculus but no acute inflammatory changes. The pancreas and adrenal glands are unremarkable. The kidneys and bladder are within normal limits. There is no identified bowel obstruction. There is no bulky abdominal or retroperitoneal lymphadenopathy. The appendix is normal. The prostate gland is within normal limits. The bony structures demonstrate mild diffuse degenerative change of the spine. IMPRESSION: Small area of infiltrate or mass demonstrated in the right lower lobe inferior to the right hilum. Cholelithiasis. Fatty liver. DICTATED BY: OLIVIA GOODMAN DO DATE: 03/22/24 122 ELECTRONICALLY SIGNED BY: OLIVIA GOODMAN DO DATE: 03/22/24 1238 PATIENT: NEHEMIAH STOUT MR#: [id number] : 1950 SEX: M AGE: 73 LOCATION: [facility] ORDER 30 STATUS: REG REPORT#: [id number] SERVICE 29 REASON: altered ORDERING PHYSICIAN: WENDY DAVIDSON DO PROCEDURE: HEAD WO - CT HEAD/BRAIN W/O CONTRAST Exam: NONCONTRAST CT BRAIN REASON: altered . COMPARISON: None. TECHNIQUE: Images are obtained from vertex to the skull base. The exam was performed without IV contrast. FINDINGS: There is a CSF collection in the posterior inferior right hemisacrum consistent with an arachnoid cyst. Encephalomalacia could result in this appearance as well. There is no mass effect. There is no midline shift. There is otherwise normal appearing brain parenchyma. There are no focal mass lesions. There is is no evidence of intracranial hemorrhage or acute stroke. Ventricles and sulci appear normal. Posterior fossa and brainstem structures are unremarkable. Paranasal sinuses and remaining extracranial soft tissues appear normal as well. IMPRESSION: 1. No acute finding 2. Encephalomalacia versus arachnoid cyst in the right hemicerebellum. CT was performed with one or more following dose reduction techniques: automated exposure control, adjustment of the mA and kv according to patient's size, or use of a iterative reconstruction technique. DICTATED BY: MAUREEN CABRALES MD DATE: 03/21/241848 ELECTRONICALLY SIGNED BY: MAUREEN CABRALES MD DATE: 03/21/241852 PATIENT: NEHEMIAH STOUT MR#: [id number] : 1950 SEX: M AGE: 73 LOCATION: [facility] ORDER 29 STATUS: REG REPORT#: [id number] SERVICE 26 REASON: cough ORDERING PHYSICIAN: WENDY DAVIDSON DO PROCEDURE: CXR1VW - CHEST 1VW CHEST 1VW REASON: cough COMPARISON: None. FINDINGS: Single view of the chest was obtained. Lungs are clear. There is mild cardiomegaly. There is no pulmonary vascular congestion. Mediastinum and bony thorax appear unremarkable. IMPRESSION: 1. Mild cardiomegaly. 2. No acute finding. DICTATED BY: MAUREEN CABRALES MD DATE: 03/21/241941 ELECTRONICALLY SIGNED BY: MAUREEN CABRALES MD DATE: 03/21/241946 Assessment/Plan: ASSESSMENT: Suspected aspiration pneumonia, POA Right lung mass per CT scan on 03/22/2023 Sepsis, POA, resolved Fever unknown source, POA, resolved Hypokalemia, POA, resolved Leukocytosis, POA, improving Anemia, POA Hyperglycemia with diabetes mellitus type 2, POA Hypomagnesemia, POA, resolved History of stroke Discharge Instructions: Patient advised to follow up with PCP in 3-5 days. Patient advised to follow up with pulmonology outpatient for bronchoscopy biopsy and sputum culture results. Home Medications: Active Scripts Levofloxacin (Levaquin 750Mg Tabs) 750 Mg Tablet, 1 TAB PO DAILY for 7 Days, #7 TAB 0 Refills Prov:JESSY PARTIDA MD 03/24/24 Metronidazole (Metronidazole) 500 Mg Tablet, 1 TAB PO TID for 10 Days, #30 TAB 0 Refills Prov:JESSY PARTIDA MD 03/24/24 Reported Medications Magnesium Oxide (Magnesium) 500 Mg Capsule, 500 MG PO HS, CAP 03/22/24 Vitamin E Mixed (Vitamin E) 1,000 Unit Capsule, 1 CAP PO DAILY for 30 Days, #30 CAP 0 Refills 03/22/24 Glucosa Mcbride 2Kcl/Chondroitin Mcbride (Glucosamine & Chondroitin Cap) 500 Mg-400 Mg Capsule, 1 EACH PO DAILY, CAP 03/22/24 Multivits-Min/FA/Lycopene/Lut (Centrum Silver Tablet) 0.4 Mg-300 Mcg-250 Mcg Tablet, 1 TAB PO DAILY for 30 Days, #30 TAB 0 Refills 03/22/24 Acetaminophen (Tylenol) 325 Mg Tablet, 1-2 TAB PO DAILY PRN for pain or fever for 7 Days, #60 TAB 0 Refills 03/22/24 [place]-3/Dha/Epa/Fish Oil (Fish Oil 1,200 mg Softgel) 1,200 Mg (144 Mg-216 Mg) Capsule, 1200 MG PO DAILY, CAP 03/22/24 Hydrochlorothiazide (Hydrochlorothiazide) 25 Mg Tablet, 1 TAB PO DAILY for 30 Days, #30 TAB 0 Refills 03/22/24 Valsartan (Valsartan) 160 Mg Tablet, 1 TAB PO DAILY for 30 Days, #30 TAB 0 Refills 03/22/24 Atorvastatin Calcium (LIPITOR) 40 Mg Tablet, 1 TAB PO DAILY for 30 Days, #30 TAB 0 Refills 03/22/24 Fluoxetine HCl (Fluoxetine HCl) 20 Mg Tablet, 1 TAB PO DAILY for 30 Days, #30 TAB 0 Refills 03/22/24 Clopidogrel Bisulfate (Clopidogrel) 75 Mg Tablet, 1 TAB PO HS for 30 Days, #30 TAB 0 Refills 03/22/24 Hydroxyzine HCl (Hydroxyzine HCl) 25 Mg Tablet, 1 TAB PO HS for anxiety for 30 Days, #60 TAB 0 Refills 03/22/24 Gabapentin (Gabapentin) 100 Mg Capsule, 1 CAP PO HS for 30 Days, #90 CAP 0 Refills 03/22/24 Pantoprazole Sodium (Pantoprazole Sodium) 40 Mg Tablet.dr, 1 TAB PO HS for 30 Days, #30 TAB 0 Refills 03/22/24 Metformin HCl (Metformin HCl ER) 500 Mg Tab.er.24h, 1 TAB PO BID for 30 Days, #60 TAB 0 Refills 03/22/24 Discontinued Reported Medications Donepezil HCl (Donepezil HCl) 5 Mg Tab.rapdis, 5 MG PO HS, TAB 03/22/24 New Medications: Levofloxacin (Levaquin 750Mg Tabs) 750 Mg Tablet 1 TAB PO DAILY for 7 Days, #7 TAB 0 Refills Metronidazole (Metronidazole) 500 Mg Tablet 1 TAB PO TID for 10 Days, #30 TAB 0 Refills Continued Medications: Acetaminophen (Tylenol) 325 Mg Tablet 1-2 TAB PO DAILY PRN for pain or fever for 7 Days, #60 TAB 0 Refills Atorvastatin Calcium (Lipitor) 40 Mg Tablet 1 TAB PO DAILY for 30 Days, #30 TAB 0 Refills Clopidogrel Bisulfate (Clopidogrel) 75 Mg Tablet 1 TAB PO HS for 30 Days, #30 TAB 0 Refills Fluoxetine HCl (Fluoxetine HCl) 20 Mg Tablet 1 TAB PO DAILY for 30 Days, #30 TAB 0 Refills Gabapentin (Gabapentin) 100 Mg Capsule 1 CAP PO HS for 30 Days, #90 CAP 0 Refills Glucosa Mcbride 2Kcl/Chondroitin Mcbride (Glucosamine & Chondroitin Cap) 500 Mg-400 Mg Capsule 1 EACH PO DAILY, CAP Hydrochlorothiazide (Hydrochlorothiazide) 25 Mg Tablet 1 TAB PO DAILY for 30 Days, #30 TAB 0 Refills Hydroxyzine HCl (Hydroxyzine HCl) 25 Mg Tablet 1 TAB PO HS for anxiety for 30 Days, #60 TAB 0 Refills Magnesium Oxide (Magnesium) 500 Mg Capsule 500 MG PO HS, CAP Metformin HCl (Metformin HCl ER) 500 Mg Tab.er.24h 1 TAB PO BID for 30 Days, #60 TAB 0 Refills Multivits-Min/FA/Lycopene/Lut (Centrum Silver Tablet) 0.4 Mg-300 Mcg-250 Mcg Tablet 1 TAB PO DAILY for 30 Days, #30 TAB 0 Refills [place]-3/Dha/Epa/Fish Oil (Fish Oil 1,200 mg Softgel) 1,200 Mg (144 Mg-216 Mg) Capsule 1200 MG PO DAILY, CAP Pantoprazole Sodium (Pantoprazole Sodium) 40 Mg Tablet.dr 1 TAB PO HS for 30 Days, #30 TAB 0 Refills Valsartan (Valsartan) 160 Mg Tablet 1 TAB PO DAILY for 30 Days, #30 TAB 0 Refills Vitamin E Mixed (Vitamin E) 1,000 Unit Capsule 1 CAP PO DAILY for 30 Days, #30 CAP 0 Refills Time spent arranging discharge: 1-30 minutes ATTESTATION BY PHYSICIAN I have seen and examined the patient. I reviewed the documentation, medical decision making, and treatment plan as noted by the resident provider above. I agree with the findings and plan of care. Viry Estrella MD, NEHA MD Mar 25, 2024 11:16
== END 2024-03-24 16:55 | disposition home or self-care (01) | DRG 871 ==
LOC: EDH 18:12 → EDHIP 20:20 → 4BH 03-22 02:58
PROVIDERS: ADMIT Internal Medicine; ATTEND Internal Medicine
PROC: 5A09357 Assistance with Respiratory Ventilation, Less than 24 Consecutive Hours, Continuous Positive Airway Pressure (ICD-10-PCS; principal; 2024-03-23)
PROC: 5A09357 Assistance with Respiratory Ventilation, Less than 24 Consecutive Hours, Continuous Positive Airway Pressure (ICD-10-PCS; 2024-03-24)
DX: A41.9 Sepsis, unspecified organism (principal); J69.0 Pneumonitis due to inhalation of food and vomit; I69.354 Hemiplegia and hemiparesis following cerebral infarction affecting left non-dominant side; Z20.822 Contact with and (suspected) exposure to COVID-19; E66.01 Morbid (severe) obesity due to excess calories; G47.33 Obstructive sleep apnea (adult) (pediatric); D64.9 Anemia, unspecified; E11.65 Type 2 diabetes mellitus with hyperglycemia; E83.42 Hypomagnesemia; E87.6 Hypokalemia; I10 Essential (primary) hypertension; T38.0X5A Adverse effect of glucocorticoids and synthetic analogues, initial encounter; Y92.89 Other specified places as the place of occurrence of the external cause; Z88.0 Allergy status to penicillin; Z51.5 Encounter for palliative care; Z68.35 Body mass index [BMI] 35.0-35.9, adult
CPT/HCPCS: 36415; 70450; 71045; 71250; 71260; 74176; 78226; 80048; 80053; 80076; 81003; 82550; 83036; 83605; 83735; 84100; 84145; 84484; 85025; 85027; 85610; 86000; 87040; 87071; 87086; 87205; 87426; 87804; 87880; 92522; 92610; 93005; 94640; 94664; 96375; 99291; A9537; G0378; J0360; J1650; J1956; J2543; J2919; J3475; J3490; J7030; J7120; J3370